=== PATIENT | female | born 1975 | race American Indian/Alaskan Native ===

== ENCOUNTER 2021-07-30 23:01 | Inpatient (IN) | payer SELFPAY ==
[2021-07-31] MEDS ORDERED: SODIUM CHLORIDE 0.9% 1000 ML 1,000 ML IV ONE (06:27)
--- NOTE | 2021-07-31 06:31 | Emergency Department Report ---
ED Female HPI - General Chief complaint: Vaginal Bleeding Stated complaint: HEAVY BLOOD FLOW Time Seen by Provider: 07/31/21 06:15 Source: patient, EMS Mode of arrival: Ambulatory Limitations: No Limitations - History of Present Illness Initial comments: 46-year-old female with a past medical history of anemia presents to the ER today with complaints of heavy vaginal bleeding. Patient states that she started bleeding yesterday. She states that the bleeding has been extremely heavy with passage of clots. She states that she has been changing 6 overnight pads per hour. She reports associated abdominal cramping shortness of breath especially exertion generalized weakness, dizziness and heart fluttering. She denies any syncopal or near syncopal episodes. She denies any fever or chills. She denies any UTI symptoms. She is not currently any control. Patient states that she had similar symptoms 2 years ago and was admitted and had to have a blood transfusion. She states that at the time she was diagnosed with small fibroids. 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 She states that her last normal menstrual cycle was June 2021 and it was regular. She states that she has been compliant with her iron supplements. Complaint: vaginal bleeding -: days(s) (1) - Related Data Allergies Allergy/AdvReac Type Severity Reaction Status Date / Time No Known Allergies Allergy Unverified 07/30/21 23:08 ED Review of Systems ROS: Stated complaint: HEAVY BLOOD FLOW Other details as noted in HPI Comment: All other systems reviewed and negative Constitutional: malaise, weakness. denies: chills, fever Eyes: denies: eye pain, eye discharge, vision change ENT: denies: ear pain, throat pain Respiratory: shortness of breath. denies: cough, SOB with exertion, SOB at rest, stridor, wheezing Cardiovascular: palpitations. denies: chest pain, dyspnea on exertion, edema, syncope, paroxysmal nocturnal dyspnea Gastrointestinal: abdominal pain. denies: nausea, vomiting, diarrhea, constipation, hematemesis, melena, hematochezia Genitourinary: abnormal menses. denies: urgency, dysuria, frequency, hematuria, discharge, dyspareunia Musculoskeletal: denies: back pain, joint swelling, arthralgia Skin: denies: rash, lesions, change in color, change in hair/nails, pruritus Neurological: weakness. denies: as per HPI, numbness, paresthesias, confusion, abnormal gait, vertigo Psychiatric: denies: anxiety, depression, auditory hallucinations, visual hallucinations, homicidal thoughts, suicidal thoughts Hematological/Lymphatic: denies: easy bleeding, easy bruising, swollen glands ED Past Medical Hx - Past Medical History Previous Medical History?: Yes Additional medical history: anemia - Surgical History Past Surgical History?: No ED Physical Exam - General Limitations: No Limitations General appearance: alert, lethargic - Head Head exam: Present: atraumatic, normocephalic, normal inspection - Eye Eye exam: Present: PERRL, EOMI, other (Pale conjunctiva) Pupils: Present: normal accommodation - ENT ENT exam: Present: mucous membranes moist, other (Oral mucosa is pale) - Neck Neck exam: Present: normal inspection, full ROM. Absent: meningismus - Respiratory Respiratory exam: Present: normal lung sounds bilaterally. Absent: respiratory distress, wheezes, rales, rhonchi, stridor - Cardiovascular Cardiovascular Exam: Present: regular rate, normal rhythm, normal heart sounds - GI/Abdominal GI/Abdominal exam: Present: soft. Absent: distended, tenderness, guarding, rebound - Extremities Exam Extremities exam: Present: normal inspection, full ROM - Neurological Exam Neurological exam: Present: alert, oriented X3, CN II-XII intact - Psychiatric Psychiatric exam: Present: normal affect, normal mood - Skin Skin exam: Present: pallor ED Course Vital Signs 07/30/21 07/31/21 07/31/21 23:07 06:48 06:50 Temperature 98 F 98.6 F Pulse Rate 67 106 H 106 H Respiratory 18 16 Rate Blood Pressure 146/62 139/83 [Right] O2 Sat by Pulse 95 100 99 Oximetry ED Medical Decision Making - Lab Data Result diagrams: 07/31/21 06:40 07/31/21 06:40 Laboratory Tests 07/31/21 07/31/21 07/31/21 06:40 06:40 06:40 RBC 1.79 L Hgb 2.9 L* Hct 11.0 L* MCV 61 L MCH 16 L MCHC 27 L RDW 37.3 H Plt Count 21 L Total Bilirubin < 0.20 Albumin/Globulin Ratio 1.6 HCG, Qual Negative - EKG Data EKG shows normal: sinus rhythm Rate: normal (95) No standard instances P Waves: LAE - EKG Data Interpretation: LVH - Radiology Data Radiology results: report reviewed Patient: MAVIS CANSECO MR#: [id number] : 1975 Acct:[id number] Age/Sex: 46 / F ADM Date: 07/30/21 Loc: ED Attending Dr: Ordering Physician: YOHANA POSADAS Date of Service: 07/31/21 Procedure(s): US pelvic complete Accession Number(s): [id number] cc: YOHANA POSADAS ULTRASOUND PELVIS INDICATION / CLINICAL INFORMATION: severe vaginal bleeding. TECHNIQUE: Transabdominal. Duplex Color Doppler used: Yes. COMPARISON: CT 10/30/2011 FINDINGS: UTERUS: The uterus is enlarged measuring 16.4 x 9.2 x 9.3 cm. The liver has a heterogeneous echotexture. The endometrial echo complex measures 6.7 mm. There are multiple hypoechoic uterine lesions, largest measuring 6.3 x 4.8 x 4.7 cm at the fundus. The masses are subserosal and intramural in location. RIGHT ADNEXA: Not identified. LEFT ADNEXA: Not identified. URINARY BLADDER: No significant abnormality. FREE FLUID: None. ADDITIONAL FINDINGS: None. IMPRESSION: 1. Enlarged uterus with multiple hypoechoic masses, which likely represent fibroids. Signer Name: Guido Little MD Signed: 07/31/2021 9:37 AM Workstation Name: [id number] Transcribed By: DB Dictated By: GUIDO LITTLE MD Electronically Authenticated By: GUIDO LITTLE MD Signed Date/Time: 07/31/21 0937 - Medical Decision Making Work up reviewed --patient severely anemic with a hemoglobin of 2.9 and viky tocrit of 11.0. She also has thrombocytopenia platelet count of 21. RBC and WBC was also noted to be at 1.79 and 13.5 respectively. Her EKG showed normal sinus rhythm with no STEMI or significant dysrhythmias. Pelvic ultrasound is pending. Given these results patient will be admitted to the hospital. She is currently resting on recliner. She is not currently in any acute distress while laying down unless when she stands up tomorrow she gets short of breath and feels like her heart is racing. Discussed results with patient and the fact that she will need to be admitted to the hospital. Patient expressed understanding and agree with plan. 0740: Discussed case with Dr Victor OBGYMaame conservation of resources commissioner, she recommend starting patient on conjugated estrogen every 6 hours and recommend admitting patient to the hospitalist and she will consult. 0801: Discussed case with Dr Preston, hospitalist for admission Critical care attestation.: If time is entered above; I have spent that time in minutes in the direct care of this critically ill patient, excluding procedure time. ED Disposition Clinical Impression: Symptomatic anemia, Thrombocytopenia, Menorrhagia, Ventricular tachycardia Disposition: ADMITTED INPATIENT Is pt being admited?: Yes Does the pt Need Aspirin: No Condition: Stable Referrals: PRIMARY CARE, [Primary Care Provider] - 3-5 Days
[2021-07-31 07:11] LABS: Mean Corpuscular HGB Conc 27 % (30-34); Red Blood Count 1.79 M/mm3 (3.65-5.03)
[2021-07-31 07:16] LABS: Hemoglobin 2.9 gm/dl (10.1-14.3); Mean Corpuscular Volume 61 fl (79-97); Platelet Count 21 K/mm3 (140-440); Red Cell Distribution Width 37.3 % (13.2-15.2)
[2021-07-31 07:31] LABS: Alanine Aminotransferase 6 units/L (7-56); Albumin 3.3 g/dL (3.9-5); Blood Urea Nitrogen 4 mg/dL (7-17); Calcium 8.3 mg/dL (8.4-10.2); Hemolysis Index 1
[2021-07-31 07:47] LABS: Eosinophils % (Manual) 0 % (0.0-4.3); Total Cells Counted 100
[2021-07-31 07:48] LABS: Anisocytosis 3+; Hypochromasia 3+; Poikilocytosis 1+
[2021-07-31 07:49] LABS: Tear Drop Cells Few
[2021-07-31 07:50] LABS: Ovalocytes Few; Platelet Estimate Consistent w Auto
[2021-07-31 07:51] LABS: BUN/Creatinine Ratio 8
[2021-07-31] MEDS ORDERED: SODIUM CHLORIDE 0.9% 500 ML 500 ML IV ONE ×2 (08:01→23:26)
[2021-07-31] MEDS: ESTROGENS, CONJUGATED 25 MG INJ IV SCH ×3 (08:25→22:49)
[2021-07-31] MEDS ORDERED: ACETAMINOPHEN 500 MG TAB PO ONE (08:37)
--- NOTE | 2021-07-31 09:39 | History and Physical Report ---
History of Present Illness History of present illness: HPI: 46 yo female with mphx of uterine fibroids, ANDERSON presenting to our facility with c/o of severe menorrhagia. Per patient, onset of symptoms was approximately 3 days ago. Patient has been saturating 6 overnight pads per hour since last night. She is currently on day 3 of 7 in her menstrual cycle. Her LMP was early last month and was normal per the pt. She endorses symptoms of abdomen cramping, SOB with exertion, generalized weakness, dizziness, and palpitations. On my encounter, she was resting comfortably only endorsing fatigue. Her tele monitor demonstrated sporadic bursts of VT, approx 15 - 20 sec. D/w ER attending regarding this. She denies DURBIN, N/V/D/C, chest pain, peripheral nerve pain. She denies dysmenorrhagia or dyspareunia associated with cycle. Remainder of ROS negative except for stated above Of note, patient states that she had a similar episode of vaginal bleeding apporximately 2 yrs ago at [facility] requiring admission and blood transfusion. She recovered uneventfully at the time and had been symptom free up until the last few days. Patient does admit to taking iron supplementation for anemia. 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 She denied taking OCP. She states that she had 3 prior pregnancies, 2 uncomplicated vaginal deliveries, one which ended in SAB. She denies any history of bleeding or clotting disorders. Patient will be admitted to IMCU for close monitoring of sympomatic anemia secondary to severe menorrhagia and intermittent runs of ventricular tachycardia. PMHx: uterine fibroids, ANDERSON, , SAB PSHx: denies FHx: reviewed non contributory SHx: Tobacco use- 1 pack per week ETOH Use- occasional Recreational Drug Use- denies Medications and Allergies Allergies Allergy/AdvReac Type Severity Reaction Status Date / Time No Known Allergies Allergy Unverified 07/30/21 23:08 Active Meds: Active Medications Estrogens Conjugated (Estrogens, Conjugated 25 Mg Inj) 25 mg IV Q6H MÓNICA Last Admin: 07/31/21 08:25 Dose: 25 mg Review of Systems All systems: negative (for stated in HPI) Exam - Physical Exam Narrative exam: Physical Exam: VITAL SIGNS: Reviewed. GENERAL: The patient appears normally developed, Vital signs as documented. ill appearing. HEAD: No signs of head trauma. EYES: Pupils are equal. Extraocular motions intact. Pale icterus EARS: Hearing grossly intact. MOUTH: Oropharynx is normal. NECK: No adenopathy, no JVD. CHEST: Chest with clear breath sounds bilaterally. No wheezes, rales, or rhonchi. CARDIAC: Regular rate and rhythm with intermittent bursts (15-20 sec) Vt. S1 and S2, without murmurs, gallops, or rubs. VASCULAR: No Edema. Peripheral pulses normal and equal in all extremities. ABDOMEN: Soft, non tender and non distended. No rebound or guarding, and no masses palpated. Bowel Sounds normal. MUSCULOSKELETAL: Good range of motion of all major joints. Extremities without clubbing, cyanosis or edema. NEUROLOGIC EXAM: Alert and oriented x 4. no focal sensory or strength deficits. PSYCHIATRIC: Mood normal. SKIN: Pale skin, nail beds pale. detail exam as documented in skin assessment - Constitutional Vitals: Temp Pulse Resp BP Pulse Ox 98.6 F 106 H 16 139/83 99 07/31/21 06:50 07/31/21 06:50 07/31/21 06:50 07/31/21 06:50 07/31/21 06:50 Results - Labs CBC & Chem 7: 07/31/21 06:40 07/31/21 06:40 Labs: Laboratory Last Values WBC 13.4 K/mm3 (4.5-11.0) H 07/31/21 06:40 RBC 1.79 M/mm3 (3.65-5.03) L 07/31/21 06:40 Hgb 2.9 gm/dl (10.1-14.3) L* 07/31/21 06:40 Hct 11.0 % (30.3-42.9) L* 07/31/21 06:40 MCV 61 fl (79-97) L 07/31/21 06:40 MCH 16 pg (28-32) L 07/31/21 06:40 MCHC 27 % (30-34) L 07/31/21 06:40 RDW 37.3 % (13.2-15.2) H 07/31/21 06:40 Plt Count 21 K/mm3 (140-440) L 07/31/21 06:40 Add Manual Diff Complete 07/31/21 06:40 Total Counted 100 07/31/21 06:40 Seg Neuts % (Manual) 88.0 % (40.0-70.0) H 07/31/21 06:40 Band Neutrophils % 0 % 07/31/21 06:40 Lymphocytes % (Manual) 8.0 % (13.4-35.0) L 07/31/21 06:40 Reactive Lymphs % (Man) 0 % 07/31/21 06:40 Monocytes % (Manual) 3.0 % (0.0-7.3) 07/31/21 06:40 Eosinophils % (Manual) 0 % (0.0-4.3) 07/31/21 06:40 Basophils % (Manual) 1.0 % (0.0-1.8) 07/31/21 06:40 Metamyelocytes % 0 % 07/31/21 06:40 Myelocytes % 0 % 07/31/21 06:40 Promyelocytes % 0 % 07/31/21 06:40 Blast Cells % 0 % 07/31/21 06:40 Nucleated RBC % Not Reportable 07/31/21 06:40 Seg Neutrophils # Man 11.8 K/mm3 (1.8-7.7) H 07/31/21 06:40 Band Neutrophils # 0.0 K/mm3 07/31/21 06:40 Lymphocytes # (Manual) 1.1 K/mm3 (1.2-5.4) L 07/31/21 06:40 Abs React Lymphs (Man) 0.0 K/mm3 07/31/21 06:40 Monocytes # (Manual) 0.4 K/mm3 (0.0-0.8) 07/31/21 06:40 Eosinophils # (Manual) 0.0 K/mm3 (0.0-0.4) 07/31/21 06:40 Basophils # (Manual) 0.1 K/mm3 (0.0-0.1) 07/31/21 06:40 Metamyelocytes # 0.0 K/mm3 07/31/21 06:40 Myelocytes # 0.0 K/mm3 07/31/21 06:40 Promyelocytes # 0.0 K/mm3 07/31/21 06:40 Blast Cells # 0.0 K/mm3 07/31/21 06:40 WBC Morphology Not Reportable 07/31/21 06:40 Hypersegmented Neuts Not Reportable 07/31/21 06:40 Hyposegmented Neuts Not Reportable 07/31/21 06:40 Hypogranular Neuts Not Reportable 07/31/21 06:40 Smudge Cells Not Reportable 07/31/21 06:40 Toxic Granulation Not Reportable 07/31/21 06:40 Toxic Vacuolation Not Reportable 07/31/21 06:40 Dohle Bodies Not Reportable 07/31/21 06:40 Pelger-Huet Anomaly Not Reportable 07/31/21 06:40 Mathieu Rods Not Reportable 07/31/21 06:40 Platelet Estimate Consistent w auto 07/31/21 06:40 Clumped Platelets Not Reportable 07/31/21 06:40 Plt Clumps, EDTA Not Reportable 07/31/21 06:40 Large Platelets Not Reportable 07/31/21 06:40 Giant Platelets Not Reportable 07/31/21 06:40 Platelet Satelliting Not Reportable 07/31/21 06:40 Plt Morphology Comment Not Reportable 07/31/21 06:40 RBC Morphology Not Reportable 07/31/21 06:40 Dimorphic RBCs Not Reportable 07/31/21 06:40 Polychromasia Few 07/31/21 06:40 Hypochromasia 3+ 07/31/21 06:40 Poikilocytosis 1+ 07/31/21 06:40 Anisocytosis 3+ 07/31/21 06:40 Microcytosis 2+ 07/31/21 06:40 Macrocytosis Not Reportable 07/31/21 06:40 Spherocytes Not Reportable 07/31/21 06:40 Pappenheimer Bodies Not Reportable 07/31/21 06:40 Sickle Cells Not Reportable 07/31/21 06:40 Target Cells Not Reportable 07/31/21 06:40 Tear Drop Cells Few 07/31/21 06:40 Ovalocytes Few 07/31/21 06:40 Helmet Cells Not Reportable 07/31/21 06:40 [place] Bodies Not Reportable 07/31/21 06:40 [place] Rings Not Reportable 07/31/21 06:40 Bishnu Cells Not Reportable 07/31/21 06:40 Bite Cells Not Reportable 07/31/21 06:40 Crenated Cell Not Reportable 07/31/21 06:40 Elliptocytes Few 07/31/21 06:40 Acanthocytes (Spur) Not Reportable 07/31/21 06:40 Rouleaux Not Reportable 07/31/21 06:40 Hemoglobin C Crystals Not Reportable 07/31/21 06:40 Schistocytes Not Reportable 07/31/21 06:40 Malaria parasites Not Reportable 07/31/21 06:40 Hector Bodies Not Reportable 07/31/21 06:40 Hem Pathologist Commnt No 07/31/21 06:40 Sodium 139 mmol/L (137-145) 07/31/21 06:40 Potassium 3.6 mmol/L (3.6-5.0) 07/31/21 06:40 Chloride 106.6 mmol/L (98-107) 07/31/21 06:40 Carbon Dioxide 20 mmol/L (22-30) L 07/31/21 06:40 Anion Gap 16 mmol/L 07/31/21 06:40 BUN 4 mg/dL (7-17) L 07/31/21 06:40 Creatinine 0.5 mg/dL (0.6-1.2) L 07/31/21 06:40 Estimated GFR > 60 ml/min 07/31/21 06:40 BUN/Creatinine Ratio 8 % 07/31/21 06:40 Glucose 140 mg/dL (65-100) H 07/31/21 06:40 Calcium 8.3 mg/dL (8.4-10.2) L 07/31/21 06:40 Total Bilirubin < 0.20 mg/dL (0.1-1.2) 07/31/21 06:40 AST 12 units/L (5-40) 07/31/21 06:40 ALT 6 units/L (7-56) L 07/31/21 06:40 Alkaline Phosphatase 48 units/L (35-129) 07/31/21 06:40 Total Protein 5.4 g/dL (6.3-8.2) L 07/31/21 06:40 Albumin 3.3 g/dL (3.9-5) L 07/31/21 06:40 Albumin/Globulin Ratio 1.6 % 07/31/21 06:40 HCG, Qual Negative (Negative) 07/31/21 06:40 Blood Type B POSITIVE 03/23/22 06:44 Antibody Screen Negative 07/31/21 06:44 Crossmatch See Detail 07/31/21 06:44 Assessment and Plan Assessment and plan: # Ventricular Tachycardia - intermittent bursts on tele - suspect this is due to severe anemia - continuous tele monitoring - ECHO ordered - initiated on metoprolol 12.5 mg po bid - cardiology consultation, recommends amiodorone bolus + drip # Menorrhagia - day 3 of 7 in menstrual cycle, prior cycle normal second episode, prior admission at [facility] x 2 yrs - VSS, hgb 2.9 - hcg qual negative - Pelvic US: enlarged uterus with hyperchoic lesions, fibroids visualized (please refer to radiology report) - 3 units prbc ordered, f/u cbc ordered - Estrogen 25 mg IV q6hr - Can consider TXA if bleeding is refractory to therapy. - ELECTRICAL SYSTEMS DESIGN ENGINEER consultation - hematology consultation placed, repeat bleeding+prior SAB could represent underlying hematologic condition. # Symptomatic Anemia - 2/2 heavy vaginal bleeding during mentrual cycle, has history of anemia and takes iron supplements. - hgb : 2.9 - s/p 3 units prbc, f/u cbc ordered - monitor H/H, transfuse prn Hgb < 7 - resume home iron supplementation - hematology consultation # Nicotine Abuse. - Cigarettes 1 pack per week - behavioral health counseling administered which included education on benefits of smoking cessation as well as options for quitting. +15 min. #Advance care planning Disease education conducted, care plan discussed, diagnoses discussed, prognosis discussed, patient is full code, patient acknowledges understanding and agree with care plan, +30 minutes. Level of Care: IMCU The high probability of a clinically significant, sudden or life threatening deterioration of the [cardiac] system(s) required my full and direct attention, intervention and personal management. The aggregate critical care time was [90] minutes. This time is in addition to time spent performing reported procedures but includes the following: [x] Data Review and interpretation [x] Patient assessment and monitoring of vital signs [x] Documentation [x] Medication orders and management
--- NOTE | 2021-07-31 09:41 | Ultrasound Report ---
ULTRASOUND PELVIS INDICATION / CLINICAL INFORMATION: severe vaginal bleeding. TECHNIQUE: Transabdominal. Duplex Color Doppler used: Yes. COMPARISON: CT 10/30/2011 FINDINGS: UTERUS: The uterus is enlarged measuring 16.4 x 9.2 x 9.3 cm. The liver has a heterogeneous echotextu re. The endometrial echo complex measures 6.7 mm. There are multiple hypoechoic uterine lesions, larg est measuring 6.3 x 4.8 x 4.7 cm at the fundus. The masses are subserosal and intramural in location. RIGHT ADNEXA: Not identified. LEFT ADNEXA: Not identified. URINARY BLADDER: No significant abnormality. FREE FLUID: None. ADDITIONAL FINDINGS: None. IMPRESSION: 1. Enlarged uterus with multiple hypoechoic masses, which likely represent fibroids. Signer Name: Guido Little MD Signed: 07/31/2021 9:37 AM Workstation Name: [email or web address]
--- NOTE | 2021-07-31 09:49 | Event Note ---
Patient has had several runs of ventricular tachycardia. I added troponin magnesium phosphorus to labs. I have informed admitting hospitalist
[2021-07-31] MEDS ORDERED: ONDANSETRON 4 MG/2 ML INJ IV PRN (10:00)
[2021-07-31] MEDS ORDERED: oxyCODONE /ACETAMINOPHEN 5-325MG TAB PO PRN (10:00)
--- NOTE | 2021-07-31 10:36 | Consultation ---
History of Present Illness Consult date: 07/31/21 Reason for consult: menorrhagia, other (severe anemia uterine fibroids) History of present illness: 46-year-old -0-1-2 with a history of uterine fibroids and symptomatic anemia presented to the emergency room with heavy vaginal bleeding x3 days. At bedside patient indicates that she has a normal cyclic menses lasting 7 days with light to medium flow. She has a history twice now of having heavy hemorrhaging with her menses but this is not her normal state. She has never been on hormones for cycle control. She indicates that she has " small fibroids." At bedside she is in the emergency room room 21 with her sister present. Her hemoglobin on admission is 2.9, she is awake alert and oriented. She continues to have premature ventricular tachycardia, is on telemetry and has had a full cardiology work-up. She indicates she has occasional cramping but denies cyclic dysmenorrhea or dyspareunia. He denies ever having surgery for this condition. She does not see a ROOMING HOUSE OPERATOR regularly. She has no history of cervical dysplasia. Denies having history of STI. Allergies none Medications none Past medical history patient denies Past surgical history patient denies Past ROOMING HOUSE OPERATOR history see above Past OB history: x2, SAB x1 Social: Patient smokes 1 pack of cigarettes per day denies use of drugs or alcohol Past History Past Medical History: other (Anemia) Past Surgical History: no surgical history ROOMING HOUSE OPERATOR History: fibroids Medications and Allergies Allergies Allergy/AdvReac Type Severity Reaction Status Date / Time No Known Allergies Allergy Unverified 07/30/21 23:08 Active Meds: Active Medications Acetaminophen (Acetaminophen 325 Mg Tab) 650 mg PO Q4H PRN PRN Reason: Pain MILD(1-3)/Fever >100.5/DURBIN Estrogens Conjugated (Estrogens, Conjugated 25 Mg Inj) 25 mg IV Q6H [facility] Last Admin: 07/31/21 08:25 Dose: 25 mg Ondansetron HCl (Ondansetron 4 Mg/2 Ml Inj) 4 mg IV Q8H PRN PRN Reason: Nausea And Vomiting Oxycodone/Acetaminophen (Oxycodone /Acetaminophen 5-325mg Tab) 1 tab PO Q6H PRN PRN Reason: Pain, Moderate (4-6) Sodium Chloride (Sodium Chloride 0.9% 10 Ml Flush Syringe) 10 ml IV BID MÓNCIA Sodium Chloride (Sodium Chloride 0.9% 10 Ml Flush Syringe) 10 ml IV PRN PRN PRN Reason: LINE FLUSH Review of Systems All systems: negative (heavy cyclic vaginal bleeding) Constitutional: fatigue - Vital Signs Vital signs: Vital Signs Temp Pulse Resp BP Pulse Ox 98 F 67 18 146/62 95 07/30/21 23:07 07/30/21 23:07 07/30/21 23:07 07/30/21 23:07 07/30/21 23:07 Temp Pulse Resp BP Pulse Ox 97.5 F L 98 H 23 146/66 98 07/31/21 10:01 07/31/21 10:20 07/31/21 10:20 07/31/21 10:20 07/31/21 10:20 - Physical Exam Breasts: Positive: normal Cardiovascular: Regular rate Lungs: Positive: Clear to auscultation, Normal air movement Abdomen: Positive: normal appearance, soft, normal bowel sounds Genitourinary (Female): Positive: normal external genitalia, normal perenium, other (Minimal bleeding on the peripad at bedside) Vulva: both: normal Vagina: Positive: normal moisture Uterus: Positive: enlarged Anus/Rectum: Positive: normal perianal skin Deep Tendon Reflex Grade: Normal +2 Results Result Diagrams: 07/31/21 06:40 07/31/21 06:40 Abnormal lab results 07/31/21 07/31/21 07/31/21 Range/Units 06:40 06:40 06:44 WBC 13.4 H (4.5-11.0) K/mm3 RBC 1.79 L (3.65-5.03) M/mm3 Hgb 2.9 L* (10.1-14.3) gm/dl Hct 11.0 L* (30.3-42.9) % MCV 61 L (79-97) fl MCH 16 L (28-32) pg MCHC 27 L (30-34) % RDW 37.3 H (13.2-15.2) % Plt Count 21 L (140-440) K/mm3 Seg Neuts % (Manual) 88.0 H (40.0-70.0) % Lymphocytes % (Manual) 8.0 L (13.4-35.0) % Seg Neutrophils # Man 11.8 H (1.8-7.7) K/mm3 Lymphocytes # (Manual) 1.1 L (1.2-5.4) K/mm3 Carbon Dioxide 20 L (22-30) mmol/L BUN 4 L (7-17) mg/dL Creatinine 0.5 L (0.6-1.2) mg/dL Glucose 140 H (65-100) mg/dL Calcium 8.3 L (8.4-10.2) mg/dL ALT 6 L (7-56) units/L Total Protein 5.4 L (6.3-8.2) g/dL Albumin 3.3 L (3.9-5) g/dL Crossmatch See Detail All other labs normal. Ultrasound: report reviewed, image reviewed Assessment and Plan admission to Hospitalist service: Patient requires telemetry and acute care nursing. transfusion IV fluids Estrogen IV 25mg Q6 hours for 24 hours Coags consider TXA if refractory to estrogen(10mg/Kg IV to a max dose of 600mg IV TID for five days) Heme consult After patient stabilizes from a hemodynamic standpoint, medical and surgical options can be reviewed and discussed. Radha Victor MD
[2021-07-31] MEDS ORDERED: SODIUM CHLORIDE 0.9% 1000 ML 1,000 ML ONE ×2 (10:57→11:58)
[2021-07-31] MEDS: METOPROLOL TARTRATE 25 MG TAB PO SCH ×2 (15:19→23:07)
[2021-07-31] MEDS ORDERED: AMIODARONE 150 MG in DEXTROSE 5% IN WATER 97 ML IV ONE ×2 (15:44→17:00)
[2021-07-31] MEDS ORDERED: AMIODARONE 150 MG/3 ML INJ IV ONE (15:52)
[2021-07-31] MEDS ORDERED: MAGNESIUM SULFATE 2 GM/50 ML BAG IV ONE (15:55)
--- NOTE | 2021-07-31 16:35 | Consultation ---
History of Present Illness Consult date: 07/31/21 Requesting physician: JAUN ESPINOZA Consult reason: arrhythmia, other (Ventricular tachycardia) History of present illness: Chief complaint: " Passing large vaginal blood clots, palpitations." Reason for consult: Ventricular tachycardia This is a pleasant 46-year-old -[place] female, unknown to our practice, with past medical history of anemia and heavy menstrual cycles who presents today after passing several large vaginal blood clots at home while on menstrual cycle. The patient states that this is day 3 of her typical 7-day cycle. She began to feel some palpitations last night and then noticed the large clots today, which prompted her to visit the emergency room. She states that she r equired transfusion in 2018 at [facility] for a similar problem. At the time of exam, patient was experiencing intermittent palpitations due to the numerous runs of VT on the bedside monitor. She also reports associated shortness of breath. Patient denies chest pain, dizziness, syncope, [place] sea/vomiting, or diarrhea. No family history of sudden or early cardiac . Patient is a 1 pack/week smoker; no significant alcohol use. No illicit drug use. Cardiology is consulted for ventricular tachycardia. Of note: CBC reveals significant anemia with hemoglobin of 2.9. Hematocrit of 1 1. Platelet count of 21. Patient has received 3 units PRBC in ED thus far. Past History Past Medical History: anemia Past Surgical History: No surgical history Social history: smoking. denies: alcohol abuse, IV drug use Family history: cancer (breast CA), hypertension, stroke Medications and Allergies Allergies Allergy/AdvReac Type Severity Reaction Status Date / Time No Known Allergies Allergy Unverified 07/30/21 23:08 Active Meds: Active Medications Acetaminophen (Acetaminophen 325 Mg Tab) 650 mg PO Q4H PRN PRN Reason: Pain MILD(1-3)/Fever >100.5/DURBIN Estrogens Conjugated (Estrogens, Conjugated 25 Mg Inj) 25 mg IV Q6H MÓNICA Stop: 08/01/21 07:59 Last Admin: 07/31/21 08:25 Dose: 25 mg Amiodarone HCl 900 mg/ (Dextrose) 500 mls @ 33.333 mls/hr IV DIRECT MÓNICA; Protocol Magnesium Sulfate (Magnesium Sulfate 2gm/50ml) 2 gm in 50 mls @ 25 mls/hr IV ONCE ONE Stop: 07/31/21 17:54 Amiodarone HCl 150 mg/ (Dextrose) 100 mls @ 600 mls/hr IV ONCE ONE Stop: 07/31/21 17:09 Metoprolol Tartrate (Metoprolol Tartrate 25 Mg Tab) 12.5 mg PO BID [facility] Last Admin: 07/31/21 15:19 Dose: 12.5 mg Ondansetron HCl (Ondansetron 4 Mg/2 Ml Inj) 4 mg IV Q8H PRN PRN Reason: Nausea And Vomiting Sodium Chloride (Sodium Chloride 0.9% 10 Ml Flush Syringe) 10 ml IV BID [facility] Last Admin: 07/31/21 12:36 Dose: 10 ml Sodium Chloride (Sodium Chloride 0.9% 10 Ml Flush Syringe) 10 ml IV PRN PRN PRN Reason: LINE FLUSH Review of Systems All systems: negative Cardiovascular: palpitations, shortness of breath, high blood pressure, no chest pain, no edema, no syncope Respiratory: no cough Gastrointestinal: no nausea, no vomiting, no diarrhea Genitourinary Female: menorrhagia, abnormal vaginal bleeding Menstruation: currently menstrual Physical Examination Vital Signs Temp Pulse Resp BP Pulse Ox 98 F 67 18 146/62 95 07/30/21 23:07 07/30/21 23:07 07/30/21 23:07 07/30/21 23:07 07/30/21 23:07 Vital Signs Temp 98.4 F 07/31/21 11:17 Pulse 87 07/31/21 15:19 Resp 18 07/31/21 13:25 BP 147/85 07/31/21 15:19 Pulse Ox 99 07/31/21 13:20 Intake & Output 07/30/21 07/31/21 07/31/21 23:59 11:59 23:59 Intake Total 0 750 Balance 0 750 Weight 81.647 kg Intake: Blood Product 0 750 Leukoreduced Red Blood 0 250 Cells Unit [id number] Leukoreduced Red Blood 250 Cells Unit [id number] Leukoreduced Red Blood 0 250 Cells Unit [id number] General appearance: no acute distress, well-nourished HEENT: Positive: Normocephaly, Mucus Membranes Moist Neck: Positive: neck supple, trachea midline Cardiac: Positive: Reg Rate and Rhythm, S1/S2, Other (Patient was having frequent runs of VT on monitor during exam. When not in VT, was in NSR with normal S1, S2) Lungs: Positive: Normal Exam Neuro: Positive: Grossly Intact Abdomen: Positive: Soft, Active Bowel Sounds Female genitourinary: deferred Skin: Negative: Rash Extremities: Present: warm. Absent: edema Results 07/31/21 06:40 07/31/21 06:40 Cardiac Enzymes 07/31/21 Range/Units 06:40 AST 12 (5-40) units/L CBC 07/31/21 Range/Units 06:40 WBC 13.4 H (4.5-11.0) K/mm3 RBC 1.79 L (3.65-5.03) M/mm3 Hgb 2.9 L* (10.1-14.3) gm/dl Hct 11.0 L* (30.3-42.9) % Plt Count 21 L (140-440) K/mm3 Comprehensive Metabolic Panel 07/31/21 Range/Units 06:40 Sodium 139 (137-145) mmol/L Potassium 3.6 (3.6-5.0) mmol/L Chloride 106.6 (98-107) mmol/L Carbon Dioxide 20 L (22-30) mmol/L BUN 4 L (7-17) mg/dL Creatinine 0.5 L (0.6-1.2) mg/dL Glucose 140 H (65-100) mg/dL Calcium 8.3 L (8.4-10.2) mg/dL AST 12 (5-40) units/L ALT 6 L (7-56) units/L Alkaline Phosphatase 48 (35-129) units/L Total Protein 5.4 L (6.3-8.2) g/dL Albumin 3.3 L (3.9-5) g/dL - Imaging and Cardiology Echo: pending EKG: report reviewed EKG interpretations - Telemetry EKG Rhythm: Sinus Rhythm (Probable LVH) Assessment and Plan Assessment Severe symptomatic anemia Ventricular tachycardia Thrombocytopenia Palpitations Hypertension Menorrhagia (heavy cyclic vaginal bleeding)-CONSTRUCTION REP following Home meds: Per patient report: Folic acid, magnesium, iron supplements at home Cardiographics: Telemetry-sinus tach with frequent runs of VT EKG- sinus rhythm heart rate 95, probable LVH, no acute ischemic changes Echocardiogram-pending Recommendations/plan: Blood pressure is currently stable Obtain echocardiogram 300 mg IV push of amiodarone bolus x1 now over 10 minutes for runs of VT, then start amiodarone drip Give 2 g IV magnesium Recheck CBC x1 now (s/p transfusion) Repeat CBC, coags, and mag level in a.m. Recommend heme/onc consult Patient seen in conjunction with Dr. Kelley who agrees with the assessment and management of this patient. - Patient Problems (1) Palpitation Current Visit: Yes Status: Acute (2) Menorrhagia Current Visit: Yes Status: Acute (3) Symptomatic anemia Current Visit: Yes Status: Acute (4) Thrombocytopenia Current Visit: Yes Status: Acute (5) Ventricular tachycardia Current Visit: Yes Status: Acute
[2021-07-31] MEDS: AMIODARONE 900 MG in DEXTROSE 5% IN WATER 482 ML IV SCH (17:16)
[2021-07-31 23:09] LABS: INR 1.1 (0.87-1.13)
[2021-07-31 23:10] LABS: Partial Thromboplastin Time 23.9 Sec. (24.2-36.6)
[2021-07-31 23:15] LABS: Mean Corpuscular HGB Conc 30 % (30-34); Mean Corpuscular Volume 76 fl (79-97); Red Blood Count 2.37 M/mm3 (3.65-5.03)
[2021-07-31 23:21] LABS: Platelet Count 24 K/mm3 (140-440)
[2021-07-31 23:25] LABS: Hematocrit 18.1 % (30.3-42.9); Hemoglobin 5.4 gm/dl (10.1-14.3)
[2021-08-01 00:46] LABS: Anisocytosis 3+; Basophils % (Manual) 0 % (0.0-1.8); Eosinophils % (Manual) 0 % (0.0-4.3); Total Cells Counted 100
[2021-08-01 00:47] LABS: Hypochromasia 3+; Tear Drop Cells Few
[2021-08-01 00:49] LABS: Ovalocytes Few; Platelet Estimate Consistent w Auto
[2021-08-01] MEDS: ESTROGENS, CONJUGATED 25 MG INJ IV SCH (03:18)
[2021-08-01] MEDS ORDERED: WATER FOR INJ Sterile (PF) 10 ML ONE (03:22)
[2021-08-01 07:32] LABS: Hematocrit 22.8 % (30.3-42.9); Hemoglobin 7.3 gm/dl (10.1-14.3); Mean Corpuscular HGB Conc 32 % (30-34); Mean Corpuscular Volume 76 fl (79-97); Platelet Count 66 K/mm3 (140-440); Red Blood Count 2.98 M/mm3 (3.65-5.03); Red Cell Distribution Width 32.7 % (13.2-15.2)
[2021-08-01 08:08] LABS: Blood Urea Nitrogen 3 mg/dL (7-17); Calcium 8.3 mg/dL (8.4-10.2); Hemolysis Index 0
[2021-08-01 08:12] LABS: BUN/Creatinine Ratio 6
[2021-08-01 08:52] LABS: Anisocytosis 2+; Basophils % (Manual) 0 % (0.0-1.8); Total Cells Counted 100
[2021-08-01 08:53] LABS: Hypochromasia 2+; Ovalocytes Few; Platelet Estimate Consistent w Auto; Poikilocytosis 1+; Tear Drop Cells Few
[2021-08-01] MEDS: METOPROLOL TARTRATE 25 MG TAB PO SCH ×2 (11:00→22:16)
--- NOTE | 2021-08-01 11:22 | Electrocardiograph Report ---
[facility] Test Date: 2021-07-31 Test Time: 06:32:39 Pat Name: MAVIS CANSECO Department: Room: A265 Gender: F Automatic Chief: JESSICA : 1975 Requested By: YOHANA POSADAS Order Number: [id number] Reading MD: Raj Kelley Measurements Intervals [place] Rate: 95 P: 69 OK: 166 QRS: 32 QRSD: 86 T: 93 QT: 379 QTc: 478 Interpretive Statements Sinus rhythm Probable left atrial enlargement Probable LVH with secondary repol abnrm No previous ECG available for comparison Electronically Signed On 08-01-2021 11:22:25 EDT by Raj Kelley
--- NOTE | 2021-08-01 11:27 | Electrocardiograph Report ---
[facility] Test Date: 2021-08-01 Test Time: 07:34:34 Pat Name: MAVIS CANSECO Department: Room: A265 1 Gender: F Manager Ent: ROBERTH : 1975 Requested By: ARABELLA MENDIOLA Order Number: [id number] Reading MD: Raj Kelley Measurements Intervals [place] Rate: 66 P: 37 NE: 203 QRS: 10 QRSD: 97 T: 61 QT: 456 QTc: 477 Interpretive Statements Sinus rhythm Borderline prolonged NE interval Compared to ECG 07/31/2021 06:32:39 No significant changes Electronically Signed On 08-01-2021 11:27:12 EDT by Raj Kelley
--- NOTE | 2021-08-01 13:11 | Consultation ---
History of Present Illness Consult date: 08/01/21 History of present illness: Patient seen and examined on a.m. rounds in IM ICU Awake alert and oriented at bedside Bleeding is resolving Patient has occasional cramping I discussed the value of an abdominal hysterectomy at discharge and patient acknowledges understanding. Patient continues to have runs of V. tach: Cardiology to manage We will continue to transfuse to hemoglobin between 01/18. 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 LINING BANDER History: fibroids Medications and Allergies Allergies Allergy/AdvReac Type Severity Reaction Status Date / Time No Known Allergies Allergy Unverified 07/30/21 23:08 Active Meds: Active Medications Acetaminophen (Acetaminophen 325 Mg Tab) 650 mg PO Q4H PRN PRN Reason: Pain MILD(1-3)/Fever >100.5/DURBIN Amiodarone HCl 900 mg/ (Dextrose) 500 mls @ 33.333 mls/hr IV DIRECT MÓNICA; Protocol Last Titration: 07/31/21 23:07 Dose: 0.5 mg/min, 16.667 mls/hr Metoprolol Tartrate (Metoprolol Tartrate 25 Mg Tab) 12.5 mg PO BID MÓNICA Last Admin: 08/01/21 11:00 Dose: 12.5 mg Ondansetron HCl (Ondansetron 4 Mg/2 Ml Inj) 4 mg IV Q8H PRN PRN Reason: Nausea And Vomiting Sodium Chloride (Sodium Chloride 0.9% 10 Ml Flush Syringe) 10 ml IV BID MÓNICA Last Admin: 07/31/21 23:08 Dose: 10 ml Sodium Chloride (Sodium Chloride 0.9% 10 Ml Flush Syringe) 10 ml IV PRN PRN PRN Reason: LINE FLUSH - Vital Signs Vital signs: Vital Signs Temp Pulse Resp BP Pulse Ox 98 F 67 18 146/62 95 07/30/21 23:07 07/30/21 23:07 07/30/21 23:07 07/30/21 23:07 07/30/21 23:07 Temp Pulse Resp BP Pulse Ox 98.9 F 68 19 139/97 96 08/01/21 12:01 08/01/21 11:00 08/01/21 07:01 08/01/21 11:00 08/01/21 07:01 - Physical Exam Breasts: Positive: deferred Cardiovascular: Other Lungs: Positive: Clear to auscultation, Normal air movement Abdomen: Positive: normal appearance, soft, normal bowel sounds Vagina: Positive: other (Perineum with minimal vaginal bleeding) Deep Tendon Reflex Grade: Normal +2 Results Result Diagrams: 08/01/21 06:31 08/01/21 06:31 Abnormal lab results 07/31/21 07/31/21 07/31/21 Range/Units 06:44 22:42 22:42 WBC 15.4 H (4.5-11.0) K/mm3 RBC 2.37 L (3.65-5.03) M/mm3 Hgb 5.4 L* (10.1-14.3) gm/dl Hct 18.1 L* D (30.3-42.9) % MCV 76 L (79-97) fl MCH 23 L (28-32) pg RDW 38.0 H (13.2-15.2) % Plt Count 24 L (140-440) K/mm3 Seg Neuts % (Manual) 88.0 H (40.0-70.0) % Lymphocytes % (Manual) 9.0 L (13.4-35.0) % Nucleated RBC % 3.0 H (0.0-0.9) % Seg Neutrophils # Man 13.6 H (1.8-7.7) K/mm3 Monocytes # (Manual) (0.0-0.8) K/mm3 Eosinophils # (Manual) (0.0-0.4) K/mm3 PT 15.5 H (12.2-14.9) Sec. APTT 23.9 L (24.2-36.6) Sec. Fibrinogen 175 L (211-480) mg/dl Chloride (98-107) mmol/L Carbon Dioxide (22-30) mmol/L BUN (7-17) mg/dL Creatinine (0.6-1.2) mg/dL Calcium (8.4-10.2) mg/dL Crossmatch See Detail 08/01/21 08/01/21 Range/Units 06:31 06:31 WBC 16.1 H (4.5-11.0) K/mm3 RBC 2.98 L (3.65-5.03) M/mm3 Hgb 7.3 L (10.1-14.3) gm/dl Hct 22.8 L (30.3-42.9) % MCV 76 L (79-97) fl MCH 24 L (28-32) pg RDW 32.7 H (13.2-15.2) % Plt Count 66 L D (140-440) K/mm3 Seg Neuts % (Manual) 82.0 H (40.0-70.0) % Lymphocytes % (Manual) 8.0 L (13.4-35.0) % Nucleated RBC % 4.0 H (0.0-0.9) % Seg Neutrophils # Man 13.2 H (1.8-7.7) K/mm3 Monocytes # (Manual) 1.1 H (0.0-0.8) K/mm3 Eosinophils # (Manual) 0.5 H (0.0-0.4) K/mm3 PT (12.2-14.9) Sec. APTT (24.2-36.6) Sec. Fibrinogen (211-480) mg/dl Chloride 110.0 H (98-107) mmol/L Carbon Dioxide 20 L (22-30) mmol/L BUN 3 L (7-17) mg/dL Creatinine 0.5 L (0.6-1.2) mg/dL Calcium 8.3 L (8.4-10.2) mg/dL Crossmatch All other labs normal. Assessment and Plan 46-year-old with uterine fibroids and associated dysfunctional uterine bleeding with severe anemia V. tach Patient was given my card to follow-up within 1 week of discharge for surgical scheduling Continue to transfuse to hemoglobin to be 9 and 10 for optimal preoperative hemodynamic stability. We will transition to Provera 10 mg p.o. at bedtime: Order placed in computer and order put in chart for discharge. Continue cardiology management of cardiac issues BAND LINING BANDER to sign off at this point Radha Victor MD
--- NOTE | 2021-08-01 14:13 | Hem/Onc Consultation ---
History of Present Illness - Reason for Consult Consult date: 08/01/21 Menorrhagia, severe anemia - History of Present Illness Heme consult note televisit via [facility] CPT [id number] Dx Anemia This is a 46yo female who presented to ER with severe menorrhagia Past medical history of uterine fibroids and iron defic anemia, on oral iron supplements Saturating 6 overnight pads per hour x 3 days-- She is currently on day 3 of 7 in her menstrual cycle Her LMP was early last month and was normal per the pt Reports abdomen cramping, SOB with exertion, generalized weakness, dizziness, and palpitations. As per notes, noted bursts of VT Reports of similar episodes of vaginal bleeding approximately 2 yrs ago at [facility] requiring admission and blood transfusion. She does not follow with OBGYN care outpatient. She states that she had 3 prior pregnancies, 2 uncomplicated vaginal deliveries, one which ended in SAB She denies any history of bleeding or clotting disorders. 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 Severe anemia, related to heavy menstrual bleeding--> iron deficiency anemia Vigilant for possible APL, even though WBC dif WNL PLAN: Labs to include: D-Dimer, manual WBC differential, LDH, electrophoresis, fibrinogen, Kaitlyn Unable to test iron studies post RBC transfusion as results would be uninterpretable Start Ferrlecit 125mg daily today Transfuse 10 units of cryo if fibrinogen <150 Transfuse 1 unit RBC whenever hct <22 Outpatient hematology follow-up for ITP management with Promacta if possible 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 Laboratory Last Values WBC 16.1 K/mm3 (4.5-11.0) H 08/01/21 06:31 RBC 2.98 M/mm3 (3.65-5.03) L 08/01/21 06:31 Hgb 7.3 gm/dl (10.1-14.3) L 08/01/21 06:31 Hct 22.8 % (30.3-42.9) L 08/01/21 06:31 MCV 76 fl (79-97) L 08/01/21 06:31 MCH 24 pg (28-32) L 08/01/21 06:31 MCHC 32 % (30-34) 08/01/21 06:31 RDW 32.7 % (13.2-15.2) H 08/01/21 06:31 Plt Count 66 K/mm3 (140-440) L D 08/01/21 06:31 Add Manual Diff Complete 08/01/21 06:31 Total Counted 100 08/01/21 06:31 Seg Neuts % (Manual) 82.0 % (40.0-70.0) H 08/01/21 06:31 Band Neutrophils % 0 % 08/01/21 06:31 Lymphocytes % (Manual) 8.0 % (13.4-35.0) L 08/01/21 06:31 Reactive Lymphs % (Man) 0 % 08/01/21 06:31 Monocytes % (Manual) 7.0 % (0.0-7.3) 08/01/21 06:31 Eosinophils % (Manual) 3.0 % (0.0-4.3) 08/01/21 06:31 Basophils % (Manual) 0 % (0.0-1.8) 08/01/21 06:31 Metamyelocytes % 0 % 08/01/21 06:31 Myelocytes % 0 % 08/01/21 06:31 Promyelocytes % 0 % 08/01/21 06:31 Blast Cells % 0 % 08/01/21 06:31 Nucleated RBC % 4.0 % (0.0-0.9) H 08/01/21 06:31 Seg Neutrophils # Man 13.2 K/mm3 (1.8-7.7) H 08/01/21 06:31 Band Neutrophils # 0.0 K/mm3 08/01/21 06:31 Lymphocytes # (Manual) 1.3 K/mm3 (1.2-5.4) 08/01/21 06:31 Abs React Lymphs (Man) 0.0 K/mm3 08/01/21 06:31 Monocytes # (Manual) 1.1 K/mm3 (0.0-0.8) H 08/01/21 06:31 Eosinophils # (Manual) 0.5 K/mm3 (0.0-0.4) H 08/01/21 06:31 Basophils # (Manual) 0.0 K/mm3 (0.0-0.1) 08/01/21 06:31 Metamyelocytes # 0.0 K/mm3 08/01/21 06:31 Myelocytes # 0.0 K/mm3 08/01/21 06:31 Promyelocytes # 0.0 K/mm3 08/01/21 06:31 Blast Cells # 0.0 K/mm3 08/01/21 06:31 WBC Morphology Not Reportable 08/01/21 06:31 Hypersegmented Neuts Not Reportable 08/01/21 06:31 Hyposegmented Neuts Not Reportable 08/01/21 06:31 Hypogranular Neuts Not Reportable 08/01/21 06:31 Smudge Cells Not Reportable 08/01/21 06:31 Toxic Granulation Not Reportable 08/01/21 06:31 Toxic Vacuolation Not Reportable 08/01/21 06:31 Dohle Bodies Not Reportable 08/01/21 06:31 Pelger-Huet Anomaly Not Reportable 08/01/21 06:31 Mathieu Rods Not Reportable 08/01/21 06:31 Platelet Estimate Consistent w auto 08/01/21 06:31 Clumped Platelets Not Reportable 08/01/21 06:31 Plt Clumps, EDTA Not Reportable 08/01/21 06:31 Large Platelets Not Reportable 08/01/21 06:31 Giant Platelets Not Reportable 08/01/21 06:31 Platelet Satelliting Not Reportable 08/01/21 06:31 Plt Morphology Comment Not Reportable 08/01/21 06:31 RBC Morphology Not Reportable 08/01/21 06:31 Dimorphic RBCs Not Reportable 08/01/21 06:31 Polychromasia Few 08/01/21 06:31 Hypochromasia 2+ 08/01/21 06:31 Poikilocytosis 1+ 08/01/21 06:31 Anisocytosis 2+ 08/01/21 06:31 Microcytosis Not Reportable 08/01/21 06:31 Macrocytosis Not Reportable 08/01/21 06:31 Spherocytes Not Reportable 08/01/21 06:31 Pappenheimer Bodies Not Reportable 08/01/21 06:31 Sickle Cells Not Reportable 08/01/21 06:31 Target Cells Not Reportable 08/01/21 06:31 Tear Drop Cells Few 08/01/21 06:31 Ovalocytes Few 08/01/21 06:31 Helmet Cells Not Reportable 08/01/21 06:31 [place] Bodies Not Reportable 08/01/21 06:31 [place] Rings Not Reportable 08/01/21 06:31 [place] Cells Not Reportable 08/01/21 06:31 Bite Cells Not Reportable 08/01/21 06:31 Crenated Cell Not Reportable 08/01/21 06:31 Elliptocytes Few 08/01/21 06:31 Acanthocytes (Spur) Not Reportable 08/01/21 06:31 Rouleaux Not Reportable 08/01/21 06:31 Hemoglobin C Crystals Not Reportable 08/01/21 06:31 Schistocytes Not Reportable 08/01/21 06:31 Malaria parasites Not Reportable 08/01/21 06:31 Hector Bodies Not Reportable 08/01/21 06:31 Hem Pathologist Commnt No 08/01/21 06:31 PT 15.5 Sec. (12.2-14.9) H 07/31/21 22:42 INR 1.10 (0.87-1.13) 07/31/21 22:42 APTT 23.9 Sec. (24.2-36.6) L 07/31/21 22:42 Fibrinogen 175 mg/dl (211-480) L 07/31/21 22:42 Sodium 139 mmol/L (137-145) 08/01/21 06:31 Potassium 3.6 mmol/L (3.6-5.0) 08/01/21 06:31 Chloride 110.0 mmol/L (98-107) H 08/01/21 06:31 Carbon Dioxide 20 mmol/L (22-30) L 08/01/21 06:31 Anion Gap 13 mmol/L 08/01/21 06:31 BUN 3 mg/dL (7-17) L 08/01/21 06:31 Creatinine 0.5 mg/dL (0.6-1.2) L 08/01/21 06:31 Estimated GFR > 60 ml/min 08/01/21 06:31 BUN/Creatinine Ratio 6 % 08/01/21 06:31 Glucose 98 mg/dL (65-100) 08/01/21 06:31 Calcium 8.3 mg/dL (8.4-10.2) L 08/01/21 06:31 Phosphorus 3.40 mg/dL (2.5-4.5) 07/31/21 10:03 Magnesium 1.90 mg/dL (1.7-2.3) 08/01/21 06:31 Total Bilirubin < 0.20 mg/dL (0.1-1.2) 07/31/21 06:40 AST 12 units/L (5-40) 07/31/21 06:40 ALT 6 units/L (7-56) L 07/31/21 06:40 Alkaline Phosphatase 48 units/L (35-129) 07/31/21 06:40 Troponin T < 0.010 ng/mL (0.00-0.029) 07/31/21 10:03 Total Protein 5.4 g/dL (6.3-8.2) L 07/31/21 06:40 Albumin 3.3 g/dL (3.9-5) L 07/31/21 06:40 Albumin/Globulin Ratio 1.6 % 07/31/21 06:40 HCG, Qual Negative (Negative) 07/31/21 06:40 Blood Type B POSITIVE 07/31/21 06:44 Antibody Screen Negative 07/31/21 06:44 Crossmatch See Detail 07/31/21 06:44 Past History Past Medical History: anemia Past Surgical History: No surgical history Social history: smoking. denies: alcohol abuse, IV drug use Family history: cancer (breast CA), hypertension, stroke Medications and Allergies Allergies Allergy/AdvReac Type Severity Reaction Status Date / Time No Known Allergies Allergy Unverified 07/30/21 23:08 Active Meds: Active Medications Acetaminophen (Acetaminophen 325 Mg Tab) 650 mg PO Q4H PRN PRN Reason: Pain MILD(1-3)/Fever >100.5/DURBIN Amiodarone HCl 900 mg/ (Dextrose) 500 mls @ 33.333 mls/hr IV DIRECT MÓNICA; Protocol Last Titration: 07/31/21 23:07 Dose: 0.5 mg/min, 16.667 mls/hr Metoprolol Tartrate (Metoprolol Tartrate 25 Mg Tab) 12.5 mg PO BID [facility] Last Admin: 08/01/21 11:00 Dose: 12.5 mg Ondansetron HCl (Ondansetron 4 Mg/2 Ml Inj) 4 mg IV Q8H PRN PRN Reason: Nausea And Vomiting Sodium Chloride (Sodium Chloride 0.9% 10 Ml Flush Syringe) 10 ml IV BID [facility] Last Admin: 07/31/21 23:08 Dose: 10 ml Sodium Chloride (Sodium Chloride 0.9% 10 Ml Flush Syringe) 10 ml IV PRN PRN PRN Reason: LINE FLUSH Sucralfate (Sucralfate 1 Gm Tab) 1 gm PO ACHS [facility] Exam - Constitutional Vitals: Last Vital Signs Temp 98.9 F 08/01/21 12:01 Pulse 58 L 08/01/21 13:00 Resp 20 08/01/21 13:00 BP 183/87 08/01/21 13:00 Pulse Ox 97 08/01/21 13:00 Results - Labs lab Results: Laboratory Results - last 24 hr 07/31/21 07/31/21 07/31/21 06:44 22:42 22:42 WBC 15.4 H RBC 2.37 L Hgb 5.4 L* Hct 18.1 L* D MCV 76 L MCH 23 L MCHC 30 RDW 38.0 H Plt Count 24 L Add Manual Diff Complete Total Counted 100 Seg Neuts % (Manual) 88.0 H Band Neutrophils % 0 Lymphocytes % (Manual) 9.0 L Reactive Lymphs % (Man) 0 Monocytes % (Manual) 3.0 Eosinophils % (Manual) 0 Basophils % (Manual) 0 Metamyelocytes % 0 Myelocytes % 0 Promyelocytes % 0 Blast Cells % 0 Nucleated RBC % 3.0 H Seg Neutrophils # Man 13.6 H Band Neutrophils # 0.0 Lymphocytes # (Manual) 1.4 Abs React Lymphs (Man) 0.0 Monocytes # (Manual) 0.5 Eosinophils # (Manual) 0.0 Basophils # (Manual) 0.0 Metamyelocytes # 0.0 Myelocytes # 0.0 Promyelocytes # 0.0 Blast Cells # 0.0 WBC Morphology Not Reportable Hypersegmented Neuts Not Reportable Hyposegmented Neuts Not Reportable Hypogranular Neuts Not Reportable Smudge Cells Not Reportable Toxic Granulation Not Reportable Toxic Vacuolation Not Reportable Dohle Bodies Not Reportable Pelger-Huet Anomaly Not Reportable Mathieu Rods Not Reportable Platelet Estimate Consistent w auto Clumped Platelets Not Reportable Plt Clumps, EDTA Not Reportable Large Platelets Not Reportable Giant Platelets Not Reportable Platelet Satelliting Not Reportable Plt Morphology Comment Not Reportable RBC Morphology Not Reportable Dimorphic RBCs Not Reportable Polychromasia Few Hypochromasia 3+ Poikilocytosis Not Reportable Anisocytosis 3+ Microcytosis 2+ Macrocytosis Not Reportable Spherocytes Not Reportable Pappenheimer Bodies Not Reportable Sickle Cells Not Reportable Target Cells Not Reportable Tear Drop Cells Few Ovalocytes Few Helmet Cells Not Reportable [place] Bodies Not Reportable [place] Rings Not Reportable Bishnu Cells Not Reportable Bite Cells Not Reportable Crenated Cell Not Reportable Elliptocytes Not Reportable Acanthocytes (Spur) Not Reportable Rouleaux Not Reportable Hemoglobin C Crystals Not Reportable Schistocytes Not Reportable Malaria parasites Not Reportable Hector Bodies Not Reportable Hem Pathologist Commnt No PT 15.5 H INR 1.10 APTT 23.9 L Fibrinogen 175 L Sodium Potassium Chloride Carbon Dioxide Anion Gap BUN Creatinine Estimated GFR BUN/Creatinine Ratio Glucose Calcium Magnesium Blood Type B POSITIVE Antibody Screen Negative Crossmatch See Detail 08/01/21 08/01/21 06:31 06:31 WBC 16.1 H RBC 2.98 L Hgb 7.3 L Hct 22.8 L MCV 76 L MCH 24 L MCHC 32 RDW 32.7 H Plt Count 66 L D Add Manual Diff Complete Total Counted 100 Seg Neuts % (Manual) 82.0 H Band Neutrophils % 0 Lymphocytes % (Manual) 8.0 L Reactive Lymphs % (Man) 0 Monocytes % (Manual) 7.0 Eosinophils % (Manual) 3.0 Basophils % (Manual) 0 Metamyelocytes % 0 Myelocytes % 0 Promyelocytes % 0 Blast Cells % 0 Nucleated RBC % 4.0 H Seg Neutrophils # Man 13.2 H Band Neutrophils # 0.0 Lymphocytes # (Manual) 1.3 Abs React Lymphs (Man) 0.0 Monocytes # (Manual) 1.1 H Eosinophils # (Manual) 0.5 H Basophils # (Manual) 0.0 Metamyelocytes # 0.0 Myelocytes # 0.0 Promyelocytes # 0.0 Blast Cells # 0.0 WBC Morphology Not Reportable Hypersegmented Neuts Not Reportable Hyposegmented Neuts Not Reportable Hypogranular Neuts Not Reportable Smudge Cells Not Reportable Toxic Granulation Not Reportable Toxic Vacuolation Not Reportable Dohle Bodies Not Reportable Pelger-Huet Anomaly Not Reportable Mathieu Rods Not Reportable Platelet Estimate Consistent w auto Clumped Platelets Not Reportable Plt Clumps, EDTA Not Reportable Large Platelets Not Reportable Giant Platelets Not Reportable Platelet Satelliting Not Reportable Plt Morphology Comment Not Reportable RBC Morphology Not Reportable Dimorphic RBCs Not Reportable Polychromasia Few Hypochromasia 2+ Poikilocytosis 1+ Anisocytosis 2+ Microcytosis Not Reportable Macrocytosis Not Reportable Spherocytes Not Reportable Pappenheimer Bodies Not Reportable Sickle Cells Not Reportable Target Cells Not Reportable Tear Drop Cells Few Ovalocytes Few Helmet Cells Not Reportable [place] Bodies Not Reportable [place] Rings Not Reportable [place] Cells Not Reportable Bite Cells Not Reportable Crenated Cell Not Reportable Elliptocytes Few Acanthocytes (Spur) Not Reportable Rouleaux Not Reportable Hemoglobin C Crystals Not Reportable Schistocytes Not Reportable Malaria parasites Not Reportable Hector Bodies Not Reportable Hem Pathologist Commnt No PT INR APTT Fibrinogen Sodium 139 Potassium 3.6 Chloride 110.0 H Carbon Dioxide 20 L Anion Gap 13 BUN 3 L Creatinine 0.5 L Estimated GFR > 60 BUN/Creatinine Ratio 6 Glucose 98 Calcium 8.3 L Magnesium 1.90 Blood Type Antibody Screen Crossmatch
--- NOTE | 2021-08-01 14:42 | Progress Note ---
Assessment and Plan Assessment and plan: Assessment and Plan # Ventricular Tachycardia (resolved) - intermittent bursts on tele - suspect this is due to severe anemia - continuous tele monitoring - ECHO: ef 55-60%, mild dilation. please refer to official report -continue metoprolol 12.5 mg po bid - cardiology consultation, recommends amiodorone bolus + drip - no further episodes seen on 08/01 encounter in afternoon, suspect VT was driven by severe anemia, will follow final cardiology recs. # Menorrhagia (improving) - day 3 of 7 in menstrual cycle, prior cycle normal second episode, prior admission at [facility] x 2 yrs - VSS, hgb 2.9 - hcg qual negative -fibrinogen 175. - Pelvic US: enlarged uterus with hyperchoic lesions, fibroids visualized (please refer to radiology report) - 3 units prbc ordered, f/u cbc ordered - Estrogen 25 mg IV q6hr - Can consider TXA if bleeding is refractory to therapy. 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 - hematology consultation placed, repeat bleeding+prior SAB could represent underlying hematologic condition. # Symptomatic Anemia - 2/2 heavy vaginal bleeding during mentrual cycle, has history of anemia and takes iron supplements. - hgb : 2.9 - s/p 3 units prbc, f/u cbc ordered - monitor H/H, transfuse prn Hgb < 7 - resume home iron supplementation - ferlicit ordered by hematology - hematology consultation #Thrombocytopenia - plt: 21k--> 66K - transfuse prn < 20k - hematology consultation # Nicotine Abuse. - Cigarettes 1 pack per week - behavioral health counseling administered which included education on benefits of smoking cessation as well as options for quitting. +15 min. #Advance care planning Disease education conducted, care plan discussed, diagnoses discussed, prognosis discussed, patient is full code, patient acknowledges understanding and agree with care plan, +30 minutes. Level of Care: IMCU Dispo: Will await cardiology final recs. patient will likely get hysterectomy as OP. If no further runs of VT tomorrow, will plan for d/c in early AM. The high probability of a clinically significant, sudden or life threatening deterioration of the [cardiac,pool player,heme] system(s) required my full and direct attention, intervention and personal management. The aggregate critical care time was [60] minutes. This time is in addition to time spent performing reported procedures but includes the following: [x] Data Review and interpretation [x] Patient assessment and monitoring of vital signs [x] Documentation [x] Medication orders and management History Interval history: No acute complaints. No episodes of VT noted on bedside tele. Patient states that she does not have significant menorrhagia today and that her symptoms have resolved today. Hospitalist Physical - Physical exam Narrative exam: Physical Exam: VITAL SIGNS: Reviewed. GENERAL: The patient appears normally developed, Vital signs as documented. ill appearing. HEAD: No signs of head trauma. EYES: Pupils are equal. Extraocular motions intact. Pale icterus EARS: Hearing grossly intact. MOUTH: Oropharynx is normal. NECK: No adenopathy, no JVD. CHEST: Chest with clear breath sounds bilaterally. No wheezes, rales, or rhonchi. CARDIAC: Regular rate and rhythm. no VT episodes visuazlied on monitor. pulse rate 54 NSR. S1 and S2, without murmurs, gallops, or rubs. VASCULAR: No Edema. Peripheral pulses normal and equal in all extremities. ABDOMEN: Soft, non tender and non distended. No rebound or guarding, and no masses palpated. Bowel Sounds normal. MUSCULOSKELETAL: Good range of motion of all major joints. Extremities without clubbing, cyanosis or edema. NEUROLOGIC EXAM: Alert and oriented x 4. no focal sensory or strength deficits. PSYCHIATRIC: Mood normal. SKIN: Pale skin, nail beds pale. detail exam as documented in skin assessment - Constitutional Vitals: Temp Pulse Resp BP Pulse Ox 98.9 F 58 L 20 183/87 97 08/01/21 12:01 08/01/21 13:00 08/01/21 13:00 08/01/21 13:00 08/01/21 13:00 General appearance: Present: no acute distress, well-nourished HEART Score - HEART Score Troponin: Troponin T < 0.010 ng/mL (0.00-0.029) 07/31/21 10:03 Results - Labs CBC & Chem 7: 08/01/21 06:31 08/01/21 06:31 Labs: Laboratory Last Values WBC 16.1 K/mm3 (4.5-11.0) H 08/01/21 06:31 RBC 2.98 M/mm3 (3.65-5.03) L 08/01/21 06:31 Hgb 7.3 gm/dl (10.1-14.3) L 08/01/21 06:31 Hct 22.8 % (30.3-42.9) L 08/01/21 06:31 MCV 76 fl (79-97) L 08/01/21 06:31 MCH 24 pg (28-32) L 08/01/21 06:31 MCHC 32 % (30-34) 08/01/21 06:31 RDW 32.7 % (13.2-15.2) H 08/01/21 06:31 Plt Count 66 K/mm3 (140-440) L D 08/01/21 06:31 Add Manual Diff Complete 08/01/21 06:31 Total Counted 100 08/01/21 06:31 Seg Neuts % (Manual) 82.0 % (40.0-70.0) H 08/01/21 06:31 Band Neutrophils % 0 % 08/01/21 06:31 Lymphocytes % (Manual) 8.0 % (13.4-35.0) L 08/01/21 06:31 Reactive Lymphs % (Man) 0 % 08/01/21 06:31 Monocytes % (Manual) 7.0 % (0.0-7.3) 08/01/21 06:31 Eosinophils % (Manual) 3.0 % (0.0-4.3) 08/01/21 06:31 Basophils % (Manual) 0 % (0.0-1.8) 08/01/21 06:31 Metamyelocytes % 0 % 08/01/21 06:31 Myelocytes % 0 % 08/01/21 06:31 Promyelocytes % 0 % 08/01/21 06:31 Blast Cells % 0 % 08/01/21 06:31 Nucleated RBC % 4.0 % (0.0-0.9) H 08/01/21 06:31 Seg Neutrophils # Man 13.2 K/mm3 (1.8-7.7) H 08/01/21 06:31 Band Neutrophils # 0.0 K/mm3 08/01/21 06:31 Lymphocytes # (Manual) 1.3 K/mm3 (1.2-5.4) 08/01/21 06:31 Abs React Lymphs (Man) 0.0 K/mm3 08/01/21 06:31 Monocytes # (Manual) 1.1 K/mm3 (0.0-0.8) H 08/01/21 06:31 Eosinophils # (Manual) 0.5 K/mm3 (0.0-0.4) H 08/01/21 06:31 Basophils # (Manual) 0.0 K/mm3 (0.0-0.1) 08/01/21 06:31 Metamyelocytes # 0.0 K/mm3 08/01/21 06:31 Myelocytes # 0.0 K/mm3 08/01/21 06:31 Promyelocytes # 0.0 K/mm3 08/01/21 06:31 Blast Cells # 0.0 K/mm3 08/01/21 06:31 WBC Morphology Not Reportable 08/01/21 06:31 Hypersegmented Neuts Not Reportable 08/01/21 06:31 Hyposegmented Neuts Not Reportable 08/01/21 06:31 Hypogranular Neuts Not Reportable 08/01/21 06:31 Smudge Cells Not Reportable 08/01/21 06:31 Toxic Granulation Not Reportable 08/01/21 06:31 Toxic Vacuolation Not Reportable 08/01/21 06:31 Dohle Bodies Not Reportable 08/01/21 06:31 Pelger-Huet Anomaly Not Reportable 08/01/21 06:31 Mathieu Rods Not Reportable 08/01/21 06:31 Platelet Estimate Consistent w auto 08/01/21 06:31 Clumped Platelets Not Reportable 08/01/21 06:31 Plt Clumps, EDTA Not Reportable 08/01/21 06:31 Large Platelets Not Reportable 08/01/21 06:31 Giant Platelets Not Reportable 08/01/21 06:31 Platelet Satelliting Not Reportable 08/01/21 06:31 Plt Morphology Comment Not Reportable 08/01/21 06:31 RBC Morphology Not Reportable 08/01/21 06:31 Dimorphic RBCs Not Reportable 08/01/21 06:31 Polychromasia Few 08/01/21 06:31 Hypochromasia 2+ 08/01/21 06:31 Poikilocytosis 1+ 08/01/21 06:31 Anisocytosis 2+ 08/01/21 06:31 Microcytosis Not Reportable 08/01/21 06:31 Macrocytosis Not Reportable 08/01/21 06:31 Spherocytes Not Reportable 08/01/21 06:31 Pappenheimer Bodies Not Reportable 08/01/21 06:31 Sickle Cells Not Reportable 08/01/21 06:31 Target Cells Not Reportable 08/01/21 06:31 Tear Drop Cells Few 08/01/21 06:31 Ovalocytes Few 08/01/21 06:31 Helmet Cells Not Reportable 08/01/21 06:31 [place] Bodies Not Reportable 08/01/21 06:31 Man Rings Not Reportable 08/01/21 06:31 [place] Cells Not Reportable 08/01/21 06:31 Bite Cells Not Reportable 08/01/21 06:31 Crenated Cell Not Reportable 08/01/21 06:31 Elliptocytes Few 08/01/21 06:31 Acanthocytes (Spur) Not Reportable 08/01/21 06:31 Rouleaux Not Reportable 08/01/21 06:31 Hemoglobin C Crystals Not Reportable 08/01/21 06:31 Schistocytes Not Reportable 08/01/21 06:31 Malaria parasites Not Reportable 08/01/21 06:31 Hector Bodies Not Reportable 08/01/21 06:31 Hem Pathologist Commnt No 08/01/21 06:31 PT 15.5 Sec. (12.2-14.9) H 07/31/21 22:42 INR 1.10 (0.87-1.13) 07/31/21 22:42 APTT 23.9 Sec. (24.2-36.6) L 07/31/21 22:42 Fibrinogen 175 mg/dl (211-480) L 07/31/21 22:42 Sodium 139 mmol/L (137-145) 08/01/21 06:31 Potassium 3.6 mmol/L (3.6-5.0) 08/01/21 06:31 Chloride 110.0 mmol/L (98-107) H 08/01/21 06:31 Carbon Dioxide 20 mmol/L (22-30) L 08/01/21 06:31 Anion Gap 13 mmol/L 08/01/21 06:31 BUN 3 mg/dL (7-17) L 08/01/21 06:31 Creatinine 0.5 mg/dL (0.6-1.2) L 08/01/21 06:31 Estimated GFR > 60 ml/min 08/01/21 06:31 BUN/Creatinine Ratio 6 % 08/01/21 06:31 Glucose 98 mg/dL (65-100) 08/01/21 06:31 Calcium 8.3 mg/dL (8.4-10.2) L 08/01/21 06:31 Phosphorus 3.40 mg/dL (2.5-4.5) 07/31/21 10:03 Magnesium 1.90 mg/dL (1.7-2.3) 08/01/21 06:31 Total Bilirubin < 0.20 mg/dL (0.1-1.2) 07/31/21 06:40 AST 12 units/L (5-40) 07/31/21 06:40 ALT 6 units/L (7-56) L 07/31/21 06:40 Alkaline Phosphatase 48 units/L (35-129) 07/31/21 06:40 Troponin T < 0.010 ng/mL (0.00-0.029) 07/31/21 10:03 Total Protein 5.4 g/dL (6.3-8.2) L 07/31/21 06:40 Albumin 3.3 g/dL (3.9-5) L 07/31/21 06:40 Albumin/Globulin Ratio 1.6 % 07/31/21 06:40 HCG, Qual Negative (Negative) 07/31/21 06:40 Blood Type B POSITIVE 07/31/21 06:44 Antibody Screen Negative 07/31/21 06:44 Crossmatch See Detail 07/31/21 06:44 Active Medications - Current Medications Current Medications: Generic Name Dose Route Start Last Admin Trade Name Freq PRN Reason Stop Dose Admin Acetaminophen 650 mg 07/31/21 10:00 Acetaminophen 325 Mg Tab PO Q4H PRN Pain MILD(1-3)/Fever >100.5/DURBIN Amiodarone HCl 900 mg/ 500 mls @ 33.333 mls/hr 07/31/21 16:00 07/31/21 23:07 Dextrose IV 0.5 mg/min DIRECT MÓNICA 16.667 mls/hr Titration Protocol 1 MG/MIN Metoprolol Tartrate 12.5 mg 07/31/21 15:00 08/01/21 11:00 Metoprolol Tartrate 25 Mg Tab PO 12.5 mg BID MÓNICA Administration Ondansetron HCl 4 mg 07/31/21 10:00 Ondansetron 4 Mg/2 Ml Inj IV Q8H PRN Nausea And Vomiting Sodium Chloride 10 ml 07/31/21 10:00 07/31/21 23:08 Sodium Chloride 0.9% 10 Ml Flush Syringe IV 10 ml BID MÓNICA Administration Sodium Chloride 10 ml 07/31/21 10:00 Sodium Chloride 0.9% 10 Ml Flush Syringe IV PRN PRN LINE FLUSH Sucralfate 1 gm 08/01/21 16:30 Sucralfate 1 Gm Tab PO ACHS MÓNICA
[2021-08-01] MEDS: SUCRALFATE 1 GM TAB PO SCH (16:25)
--- NOTE | 2021-08-01 16:30 | Progress Note ---
Assessment and Plan This is a pleasant 46-year-old [place] female, unknown to our practice, with past medical history of anemia and heavy menstrual cycles who presented to ED after passing several large vaginal blood clots at home while on menstrual cycle. Severe symptomatic anemia Ventricular tachycardia Thrombocytopenia Palpitations Hypertension Menorrhagia (heavy cyclic vaginal bleeding)-[employer]CH[employer]YMAN following Home meds: Per patient report: Folic acid, magnesium, iron supplements at home Echo 07/31/2021-EF 55 to 60%. LV is mildly dilated. Mild concentric LVH. Mild diastolic dysfunction is present. No pericardial effusion Plan: Patient's H&H has improved however patient remains anemic. Continue to monitor recommend blood transfusion if patient is hemoglobin less than 7 Attempted to review telemetry however patient has not been correctly on monitor Unclear if patient has had any further episodes of V. tach. From what was observed patient appeared to have been in sinus rhythm rate of 60s Will continue amiodarone drip and review telemetry for any further episodes of V. tach Discussed with patient importance of remaining on monitor Patient seen in conjunction with Dr. Kelley who agrees with the assessment and management of this patient. - Patient Problems (1) Menorrhagia Current Visit: Yes Status: Acute (2) Palpitation Current Visit: Yes Status: Acute (3) Symptomatic anemia Current Visit: Yes Status: Acute (4) Thrombocytopenia Current Visit: Yes Status: Acute (5) Ventricular tachycardia Current Visit: Yes Status: Acute Subjective Date of service: 08/01/21 Principal diagnosis: Anemia/V. tach Interval history: Patient resting in bed in no acute distress Patient not on monitor Objective Vital Signs Temp Pulse Pulse Resp BP BP Pulse Ox 08/01/21 13:00 58 L 20 183/87 97 08/01/21 12:01 98.9 F 63 17 165/91 99 08/01/21 11:00 69 25 H 155/72 99 08/01/21 10:01 132/78 99 08/01/21 09:00 70 18 156/76 95 08/01/21 08:00 68 67 24 152/68 95 08/01/21 07:28 98.9 F 08/01/21 07:01 65 19 150/64 96 08/01/21 06:00 69 23 152/70 98 08/01/21 05:00 65 24 151/73 97 08/01/21 04:11 65 22 145/66 99 08/01/21 04:00 65 22 145/66 97 08/01/21 03:51 70 23 147/63 100 08/01/21 03:41 67 22 147/63 99 08/01/21 03:30 65 22 147/63 97 08/01/21 03:21 65 22 164/69 99 08/01/21 03:11 67 23 164/69 100 08/01/21 03:07 69 100 08/01/21 03:00 67 22 164/69 95 08/01/21 02:11 98.2 F 08/01/21 02:00 66 23 156/67 98 08/01/21 01:51 65 22 148/75 100 08/01/21 01:46 98.1 F 66 22 148/75 08/01/21 01:41 68 22 148/75 100 08/01/21 01:30 69 22 148/75 99 08/01/21 01:21 67 22 137/66 100 08/01/21 01:11 65 21 137/66 100 08/01/21 01:00 66 22 137/66 100 08/01/21 00:51 66 22 146/62 99 08/01/21 00:41 66 22 146/62 100 08/01/21 00:38 98 F 66 22 146/62 08/01/21 00:31 65 21 145/63 99 08/01/21 00:23 98.0 F 67 22 145/63 99 08/01/21 00:21 65 19 145/63 100 08/01/21 00:11 69 20 145/63 100 08/01/21 00:00 65 67 23 145/63 100 07/31/21 23:51 64 20 120/51 100 0322 23:41 64 21 120/51 100 0322 23:31 66 24 120/51 100 03/22 23:21 64 15 120/51 100 [id number] 23:13 66 15 120/51 100 22 23:11 64 19 120/51 100 22 23:01 65 14 120/51 100 0322 22:51 63 22 99 22 22:43 99 22 22:40 98.5 F 07/31/21 22:21 64 13 131/53 100 07/31/21 22:16 98 F 71 15 131/53 98 07/31/ 22:11 72 22 131/53 99 07/31/21 22:01 65 13 131/53 100 07/31/21 21:51 68 14 139/60 100 07/31/22 21:41 67 18 139/60 100 07/31/21 21:31 66 19 139/60 99 07/31/21 21:21 65 23 158/79 100 07/31/21 21:11 69 23 158/79 99 07/31/21 21:01 66 22 158/79 100 07/31/21 21:00 98 F 66 20 148/73 100 07/31/ 20:51 68 24 148/73 100 07/31/21 20:41 67 21 148/73 99 07/31/21 20:31 66 23 148/73 99 07/31/21 20:21 67 23 155/72 97 07/31/21 20:11 66 21 155/72 97 07/31/21 20:01 67 21 155/72 98 07/31/21 19:51 68 22 145/85 97 07/31/21 19:41 67 22 145/85 100 07/31/21 19:31 66 24 145/85 100 07/31/21 19:21 67 26 H 148/81 100 07/31/21 19:11 67 22 148/81 100 07/31/21 19:01 64 19 148/81 100 07/31/21 18:51 66 24 145/76 100 07/31/21 18:41 66 23 145/76 100 07/31/21 18:31 67 19 145/76 100 07/31/21 18:21 68 19 137/77 100 07/31/21 18:11 69 13 148/80 95 07/31/21 18:01 69 12 148/80 100 07/31/ 17:51 68 19 148/80 100 07/31/21 17:41 79 13 148/80 98 07/31/21 17:31 70 13 148/80 97 07/31/21 17:21 66 17 148/80 100 07/31/21 17:11 69 20 129/57 100 22 17:01 70 15 129/57 91 07/31/21 16:51 71 15 137/64 100 07/31/21 16:41 73 18 137/64 100 07/31/21 16:31 79 15 143/67 100 - Physical Examination General: No Apparent Distress HEENT: Positive: Normocephaly, Mucus Membranes Moist Neck: Positive: neck supple, trachea midline Cardiac: Positive: Reg Rate and Rhythm Neuro: Positive: Grossly Intact Abdomen: Positive: Soft, Active Bowel Sounds Skin: Negative: Rash Extremities: Present: warm. Absent: edema - Labs and Meds Coagulation 07/31/21 Range/Units 22:42 PT 15.5 H (12.2-14.9) Sec. INR 1.10 (0.87-1.13) APTT 23.9 L (24.2-36.6) Sec. CBC 07/31/21 08/01/21 Range/Units 22:42 06:31 WBC 15.4 H 16.1 H (4.5-11.0) K/mm3 RBC 2.37 L 2.98 L (3.65-5.03) M/mm3 Hgb 5.4 L* 7.3 L (10.1-14.3) gm/dl Hct 18.1 L* D 22.8 L (30.3-42.9) % Plt Count 24 L 66 L D (140-440) K/mm3 Comprehensive Metabolic Panel 08/01/21 Range/Units 06:31 Sodium 139 (137-145) mmol/L Potassium 3.6 (3.6-5.0) mmol/L Chloride 110.0 H (98-107) mmol/L Carbon Dioxide 20 L (22-30) mmol/L BUN 3 L (7-17) mg/dL Creatinine 0.5 L (0.6-1.2) mg/dL Glucose 98 (65-100) mg/dL Calcium 8.3 L (8.4-10.2) mg/dL - Imaging and Cardiology EKG: report reviewed Echo: report reviewed
[2021-08-01] MEDS ORDERED: SODIUM FERRIC GLUCON/SUCRO 125 MG in SODIUM CHLORIDE 0.9% 100 ML IV ONE (16:43)
[2021-08-01] MEDS: AMIODARONE 900 MG in DEXTROSE 5% IN WATER 482 ML IV SCH (18:31)
[2021-08-01] MEDS: ACETAMINOPHEN 325 MG TAB PO PRN (22:12)
[2021-08-02 04:45] LABS: Hemoglobin 7.5 gm/dl (10.1-14.3); Mean Corpuscular HGB Conc 31 % (30-34); Mean Corpuscular Volume 77 fl (79-97); Red Blood Count 3.11 M/mm3 (3.65-5.03)
[2021-08-02] MEDS: ACETAMINOPHEN 325 MG TAB PO PRN (04:48)
[2021-08-02 04:57] LABS: Platelet Count 49 K/mm3 (140-440); Red Cell Distribution Width 32.1 % (13.2-15.2)
[2021-08-02] MEDS: SUCRALFATE 1 GM TAB PO SCH ×5 (06:16→22:00)
[2021-08-02 06:28] LABS: Basophils % (Manual) 0 % (0.0-1.8); Monocytes % (Manual) 0 % (0.0-7.3); Total Cells Counted 100
[2021-08-02 06:29] LABS: Anisocytosis 3+; Hypochromasia 1+
[2021-08-02 06:30] LABS: Macrocytosis 1+; Ovalocytes Few; Platelet Estimate Consistent w Auto; Tear Drop Cells Few
[2021-08-02] MEDS: METOPROLOL TARTRATE 25 MG TAB PO SCH ×2 (07:21→11:31)
--- NOTE | 2021-08-02 09:31 | Hem/Onc Progress Note ---
Subjective Date of service: 08/02/21 Interval history: Heme progress note televisit via [facility] CPT 92092 Dx Anemia 46yo female who presented to ER with severe menorrhagia H/H on admission 2.9 MCV 61, WBC 16.1, plts 21 Hematology following for anemia and thrombocytopenia Denies bleeding today Feels better today DATA REVIEWED BELOW Hgb 2.9 --> 7.5 Plts 21 -> 66--> 49 Fib 309 IMP: Thrombocytopenia, due to ITP with heavy periods Severe anemia, related to heavy menstrual bleeding--> iron deficiency anemia APL possible although doubt Plan: Start Solumedrol 1mg/kg IV BID Pending Kaitlyn Ferrlecit 125mg daily today Transfuse 1 unit RBC whenever hct <22 Recommend Lysteda 650mg every 6 hours for a max of 5 days when menstrual bleeding at discharge Outpatient hematology follow-up for ITP management with Promacta if possible 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 follow-up outpatient for hysterectomy Laboratory Last Values WBC 15.2 K/mm3 (4.5-11.0) H 08/02/21 04:22 Hgb 7.5 gm/dl (10.1-14.3) L 08/02/21 04:22 Hct 24.0 % (30.3-42.9) L 08/02/21 04:22 MCV 77 fl (79-97) L 08/02/21 04:22 Plt Count 49 K/mm3 (140-440) L 08/02/21 04:22 Add Manual Diff Complete 08/02/21 04:22 Total Counted 100 08/02/21 04:22 Seg Neuts % (Manual) 88.0 % (40.0-70.0) H 08/02/21 04:22 Band Neutrophils % 0 % 08/02/21 04:22 Lymphocytes % (Manual) 10.0 % (13.4-35.0) L 08/02/21 04:22 Reactive Lymphs % (Man) 0 % 08/02/21 04:22 Monocytes % (Manual) 0 % (0.0-7.3) 08/02/21 04:22 Eosinophils % (Manual) 2.0 % (0.0-4.3) 08/02/21 04:22 Basophils % (Manual) 0 % (0.0-1.8) 08/02/21 04:22 Metamyelocytes % 0 % 08/02/21 04:22 Myelocytes % 0 % 08/02/21 04:22 Promyelocytes % 0 % 08/02/21 04:22 Blast Cells % 0 % 08/02/21 04:22 Nucleated RBC % 2.0 % (0.0-0.9) H 08/02/21 04:22 Seg Neutrophils # Man 13.4 K/mm3 (1.8-7.7) H 08/02/21 04:22 Band Neutrophils # 0.0 K/mm3 08/02/21 04:22 Lymphocytes # (Manual) 1.5 K/mm3 (1.2-5.4) 08/02/21 04:22 Abs React Lymphs (Man) 0.0 K/mm3 08/02/21 04:22 Monocytes # (Manual) 0.0 K/mm3 (0.0-0.8) 08/02/21 04:22 Eosinophils # (Manual) 0.3 K/mm3 (0.0-0.4) 08/02/21 04:22 Basophils # (Manual) 0.0 K/mm3 (0.0-0.1) 08/02/21 04:22 Metamyelocytes # 0.0 K/mm3 08/02/21 04:22 Myelocytes # 0.0 K/mm3 08/02/21 04:22 Promyelocytes # 0.0 K/mm3 08/02/21 04:22 Blast Cells # 0.0 K/mm3 08/02/21 04:22 WBC Morphology Not Reportable 08/02/21 04:22 Hypersegmented Neuts Not Reportable 08/02/21 04:22 Hyposegmented Neuts Not Reportable 08/02/21 04:22 Hypogranular Neuts Not Reportable 08/02/21 04:22 Smudge Cells Not Reportable 08/02/21 04:22 Toxic Granulation Not Reportable 08/02/21 04:22 Toxic Vacuolation Not Reportable 08/02/21 04:22 Dohle Bodies Not Reportable 08/02/21 04:22 Pelger-Huet Anomaly Not Reportable 08/02/21 04:22 Mathieu Rods Not Reportable 08/02/21 04:22 Platelet Estimate Consistent w auto 08/02/21 04:22 Clumped Platelets Not Reportable 08/02/21 04:22 Plt Clumps, EDTA Not Reportable 08/02/21 04:22 Large Platelets Not Reportable 08/02/21 04:22 Giant Platelets Not Reportable 08/02/21 04:22 Platelet Satelliting Not Reportable 08/02/21 04:22 Plt Morphology Comment Not Reportable 08/02/21 04:22 RBC Morphology Not Reportable 08/02/21 04:22 Dimorphic RBCs Not Reportable 08/02/21 04:22 Polychromasia Not Reportable 08/02/21 04:22 Hypochromasia 1+ 08/02/21 04:22 Poikilocytosis Not Reportable 08/02/21 04:22 Anisocytosis 3+ 08/02/21 04:22 Microcytosis Not Reportable 08/02/21 04:22 Macrocytosis 1+ 08/02/21 04:22 Spherocytes Not Reportable 08/02/21 04:22 Pappenheimer Bodies Not Reportable 08/02/21 04:22 Sickle Cells Not Reportable 08/02/21 04:22 Target Cells Not Reportable 08/02/21 04:22 Tear Drop Cells Few 08/02/21 04:22 Ovalocytes Few 08/02/21 04:22 Helmet Cells Not Reportable 08/02/21 04:22 [place] Bodies Not Reportable 08/02/21 04:22 [place] Rings Not Reportable 08/02/21 04:22 Bishnu Cells Not Reportable 08/02/21 04:22 Bite Cells Not Reportable 08/02/21 04:22 Crenated Cell Not Reportable 08/02/21 04:22 Elliptocytes Not Reportable 08/02/21 04:22 Acanthocytes (Spur) Not Reportable 08/02/21 04:22 Rouleaux Not Reportable 08/02/21 04:22 Hemoglobin C Crystals Not Reportable 08/02/21 04:22 Schistocytes Not Reportable 08/02/21 04:22 Malaria parasites Not Reportable 08/02/21 04:22 Hector Bodies Not Reportable 08/02/21 04:22 Hem Pathologist Commnt No 08/02/21 04:22 PT 15.5 Sec. (12.2-14.9) H 07/31/21 22:42 INR 1.10 (0.87-1.13) 07/31/21 22:42 APTT 23.9 Sec. (24.2-36.6) L 07/31/21 22:42 Fibrinogen 309 mg/dl (211-480) 08/02/21 04:22 D-Dimer 594.69 ng/mlDDU (0-234) H 08/02/21 04:22 Sodium 139 mmol/L (137-145) 08/01/21 06:31 Potassium 3.6 mmol/L (3.6-5.0) 08/01/21 06:31 Chloride 110.0 mmol/L (98-107) H 08/01/21 06:31 Carbon Dioxide 20 mmol/L (22-30) L 08/01/21 06:31 Anion Gap 13 mmol/L 08/01/21 06:31 BUN 3 mg/dL (7-17) L 08/01/21 06:31 Creatinine 0.5 mg/dL (0.6-1.2) L 08/01/21 06:31 Estimated GFR > 60 ml/min 08/01/21 06:31 BUN/Creatinine Ratio 6 % 08/01/21 06:31 Glucose 98 mg/dL (65-100) 08/01/21 06:31 Calcium 8.3 mg/dL (8.4-10.2) L 08/01/21 06:31 Phosphorus 3.40 mg/dL (2.5-4.5) 07/31/21 10:03 Magnesium 1.90 mg/dL (1.7-2.3) 08/01/21 06:31 Total Bilirubin < 0.20 mg/dL (0.1-1.2) 07/31/21 06:40 AST 12 units/L (5-40) 07/31/21 06:40 ALT 6 units/L (7-56) L 07/31/21 06:40 Alkaline Phosphatase 48 units/L (35-129) 07/31/21 06:40 Lactate Dehydrogenase 227 units/L (91-180) H 08/02/21 04:22 Troponin T < 0.010 ng/mL (0.00-0.029) 07/31/21 10:03 Total Protein 5.4 g/dL (6.3-8.2) L 07/31/21 06:40 Albumin 3.3 g/dL (3.9-5) L 07/31/21 06:40 Albumin/Globulin Ratio 1.6 % 07/31/21 06:40 HCG, Qual Negative (Negative) 07/31/21 06:40 Blood Type B POSITIVE 07/31/21 06:44 Antibody Screen Negative 07/31/21 06:44 Direct Antiglob Test Negative 08/02/21 04:22 JULIET, Poly Interpret Negative 08/02/21 04:22 Crossmatch See Detail 07/31/21 06:44 Objective - Constitutional Vitals: Last Vital Signs Temp 98.5 F 08/02/21 04:00 Pulse 63 08/02/21 06:00 Resp 18 08/02/21 06:00 BP 168/84 08/02/21 06:00 Pulse Ox 97 08/02/21 06:00 - Labs Lab Results: Laboratory Results - last 24 hr 08/02/21 08/02/21 08/02/21 04:22 04:22 04:22 WBC RBC Hgb Hct MCV MCH MCHC RDW Plt Count Add Manual Diff Total Counted Seg Neuts % (Manual) Band Neutrophils % Lymphocytes % (Manual) Reactive Lymphs % (Man) Monocytes % (Manual) Eosinophils % (Manual) Basophils % (Manual) Metamyelocytes % Myelocytes % Promyelocytes % Blast Cells % Nucleated RBC % Seg Neutrophils # Man Band Neutrophils # Lymphocytes # (Manual) Abs React Lymphs (Man) Monocytes # (Manual) Eosinophils # (Manual) Basophils # (Manual) Metamyelocytes # Myelocytes # Promyelocytes # Blast Cells # WBC Morphology Hypersegmented Neuts Hyposegmented Neuts Hypogranular Neuts Smudge Cells Toxic Granulation Toxic Vacuolation Dohle Bodies Pelger-Huet Anomaly Mathieu Rods Platelet Estimate Clumped Platelets Plt Clumps, EDTA Large Platelets Giant Platelets Platelet Satelliting Plt Morphology Comment RBC Morphology Dimorphic RBCs Polychromasia Hypochromasia Poikilocytosis Anisocytosis Microcytosis Macrocytosis Spherocytes Pappenheimer Bodies Sickle Cells Target Cells Tear Drop Cells Ovalocytes Helmet Cells [place] Bodies [place] Rings Bishnu Cells Bite Cells Crenated Cell Elliptocytes Acanthocytes (Spur) Rouleaux Hemoglobin C Crystals Schistocytes Malaria parasites Hector Bodies Hem Pathologist Commnt Fibrinogen 309 D-Dimer 594.69 H Lactate Dehydrogenase 227 H Direct Antiglob Test Negative JULIET, Poly Interpret Negative 08/02/21 04:22 WBC 15.2 H RBC 3.11 L Hgb 7.5 L Hct 24.0 L MCV 77 L MCH 24 L MCHC 31 RDW 32.1 H Plt Count 49 L Add Manual Diff Complete Total Counted 100 Seg Neuts % (Manual) 88.0 H Band Neutrophils % 0 Lymphocytes % (Manual) 10.0 L Reactive Lymphs % (Man) 0 Monocytes % (Manual) 0 Eosinophils % (Manual) 2.0 Basophils % (Manual) 0 Metamyelocytes % 0 Myelocytes % 0 Promyelocytes % 0 Blast Cells % 0 Nucleated RBC % 2.0 H Seg Neutrophils # Man 13.4 H Band Neutrophils # 0.0 Lymphocytes # (Manual) 1.5 Abs React Lymphs (Man) 0.0 Monocytes # (Manual) 0.0 Eosinophils # (Manual) 0.3 Basophils # (Manual) 0.0 Metamyelocytes # 0.0 Myelocytes # 0.0 Promyelocytes # 0.0 Blast Cells # 0.0 WBC Morphology Not Reportable Hypersegmented Neuts Not Reportable Hyposegmented Neuts Not Reportable Hypogranular Neuts Not Reportable Smudge Cells Not Reportable Toxic Granulation Not Reportable Toxic Vacuolation Not Reportable Dohle Bodies Not Reportable Pelger-Huet Anomaly Not Reportable Mathieu Rods Not Reportable Platelet Estimate Consistent w auto Clumped Platelets Not Reportable Plt Clumps, EDTA Not Reportable Large Platelets Not Reportable Giant Platelets Not Reportable Platelet Satelliting Not Reportable Plt Morphology Comment Not Reportable RBC Morphology Not Reportable Dimorphic RBCs Not Reportable Polychromasia Not Reportable Hypochromasia 1+ Poikilocytosis Not Reportable Anisocytosis 3+ Microcytosis Not Reportable Macrocytosis 1+ Spherocytes Not Reportable Pappenheimer Bodies Not Reportable Sickle Cells Not Reportable Target Cells Not Reportable Tear Drop Cells Few Ovalocytes Few Helmet Cells Not Reportable [place] Bodies Not Reportable [place] Rings Not Reportable [place] Cells Not Reportable Bite Cells Not Reportable Crenated Cell Not Reportable Elliptocytes Not Reportable Acanthocytes (Spur) Not Reportable Rouleaux Not Reportable Hemoglobin C Crystals Not Reportable Schistocytes Not Reportable Malaria parasites Not Reportable Hector Bodies Not Reportable Hem Pathologist Commnt No Fibrinogen D-Dimer Lactate Dehydrogenase Direct Antiglob Test JULIET, Poly Interpret Medications & Allergies - Medications Allergies/Adverse Reactions: Allergies No Known Allergies Allergy (Unverified 07/30/21 23:08) Home Medications: Home Medications Medication Instructions Recorded Confirmed Last Taken Type medroxyPROGESTERone ACETATE 10 mg PO QHS #30 08/01/21 Unknown Rx [Provera] Active Medications: Generic Name Dose Route Start Last Admin Trade Name Freq PRN Reason Stop Dose Admin Acetaminophen 650 mg 07/31/21 10:00 08/02/21 04:48 Acetaminophen 325 Mg Tab PO 650 mg Q4H PRN Administration Pain MILD(1-3)/Fever >100.5/DURBIN Amiodarone HCl 900 mg/ 500 mls @ 33.333 mls/hr 07/31/21 16:00 08/01/21 18:31 Dextrose IV 0.5 mg/min DIRECT MÓNICA 16.667 mls/hr Administration Protocol 1 MG/MIN Medroxyprogesterone Acetate 10 mg 08/01/21 17:00 Medroxyprogesterone Acetate 5 Mg Tab PO QDAY MÓNICA Metoprolol Tartrate 12.5 mg 07/31/21 15:00 08/01/21 22:16 Metoprolol Tartrate 25 Mg Tab PO 12.5 mg BID MÓNICA Administration Ondansetron HCl 4 mg 07/31/21 10:00 Ondansetron 4 Mg/2 Ml Inj IV Q8H PRN Nausea And Vomiting Sodium Chloride 10 ml 07/31/21 10:00 08/02/21 06:15 Sodium Chloride 0.9% 10 Ml Flush Syringe IV Not Given BID MÓNICA Sodium Chloride 10 ml 07/31/21 10:00 08/02/21 06:14 Sodium Chloride 0.9% 10 Ml Flush Syringe IV 10 ml PRN PRN Administration LINE FLUSH Sucralfate 1 gm 08/01/21 16:30 08/02/21 06:16 Sucralfate 1 Gm Tab PO 1 gm ACHS MÓNICA Administration
--- NOTE | 2021-08-02 10:11 | Progress Note ---
Assessment and Plan Assessment and plan: Hospital Course: 08/02: D/w cardiology who are ok with discontinuation of amiodorone. Patient will likely get OP procedure for hysterectomy. In the interim, platelet count remains low. D/w Hematology who believes patient likely has ITP. Recommends continuation of solumedrol until platelet count improves over 50K consistently. Anticipate discharge on Thursday. Will order cbc for tomorrow. Assessment and Plan # Ventricular Tachycardia (resolved) - intermittent bursts on tele - suspect this is due to severe anemia - continuous tele monitoring - ECHO: ef 55-60%, mild dilation. please refer to official report -continue metoprolol 12.5 mg po bid - cardiology consultation, recommends amiodorone bolus + drip - no further episodes seen on 08/01 encounter in afternoon, suspect VT was driven by severe anemia, will follow final cardiology recs. # Menorrhagia (improving) - day 3 of 7 in menstrual cycle, prior cycle normal second episode, prior admission at [facility] x 2 yrs - VSS, hgb 2.9 - hcg qual negative - Pelvic US: enlarged uterus with hyperchoic lesions, fibroids visualized (please refer to radiology report) - 3 units prbc ordered, f/u cbc ordered - Estrogen 25 mg IV q6hr - Can consider TXA if bleeding is refractory to therapy. 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 - hematology consultation for anemia/thrombocytopenia # Symptomatic Anemia - 2/2 heavy vaginal bleeding during mentrual cycle, has history of anemia and takes iron supplements. - hgb : 2.9 - s/p 3 units prbc, f/u cbc ordered - monitor H/H, transfuse prn Hgb < 7 - fibrinogen 175 -> 309 - resume home iron supplementation - ferlicitIV - hematology consultation #ITP - lisbet test pending - plt: 21k--> 66K -- > 49K - transfuse prn < 20k - continue solumedrol 1mg/kg IV bid until plt ct > 50K consistently - hematology consultation, recommendations noted. # Nicotine Abuse. - Cigarettes 1 pack per week - behavioral health counseling administered which included education on benefits of smoking cessation as well as options for quitting. +15 min. #Advance care planning Disease education conducted, care plan discussed, diagnoses discussed, prognosis discussed, patient is full code, patient acknowledges understanding and agree with care plan, +30 minutes. Level of Care: IMCU The high probability of a clinically significant, sudden or life threatening deterioration of the [cardiac,engraver seals,heme] system(s) required my full and direct attention, intervention and personal management. The aggregate critical care time was [60] minutes. This time is in addition to time spent performing reported procedures but includes the following: [x] Data Review and interpretation [x] Patient assessment and monitoring of vital signs [x] Documentation [x] Medication orders and management History Interval history: Patient was seen and examined on bedside encounter. She had no acute complaints of active bleeding and states that she is only spotting today. She does state that her arms are painful at IV insertion sites but states that it is improving once they were removed. She denies any bruising on her extremities. She denies any heart palpitations or chest pain this morning. Hospitalist Physical - Physical exam Narrative exam: Physical Exam: VITAL SIGNS: Reviewed. GENERAL: The patient appears normally developed, Vital signs as documented. pleasant, NAD. HEAD: No signs of head trauma. EYES: Pupils are equal. Extraocular motions intact. Pale icterus EARS: Hearing grossly intact. MOUTH: Oropharynx is normal. NECK: No adenopathy, no JVD. CHEST: Chest with clear breath sounds bilaterally. No wheezes, rales, or rhonc hi. CARDIAC: Regular rate and rhythm. no VT episodes visualized on monitor. pulse rate 54 NSR. S1 and S2, without murmurs, gallops, or rubs. VASCULAR: No Edema. Peripheral pulses normal and equal in all extremities. ABDOMEN: Soft, non tender and non distended. No rebound or guarding, and no masses palpated. Bowel Sounds normal. MUSCULOSKELETAL: Good range of motion of all major joints. Extremities without clubbing, cyanosis or edema. NEUROLOGIC EXAM: Alert and oriented x 4. no focal sensory or strength deficits. PSYCHIATRIC: Mood normal. SKIN: Pale skin, nail beds pale. detail exam as documented in skin assessment - Constitutional Vitals: Temp Pulse Resp BP Pulse Ox 98.5 F 63 18 168/84 97 08/02/21 04:00 08/02/21 06:00 08/02/21 06:00 08/02/21 06:00 08/02/21 06:00 General appearance: Present: no acute distress, well-nourished HEART Score - HEART Score Troponin: Troponin T < 0.010 ng/mL (0.00-0.029) 07/31/21 10:03 Results - Labs CBC & Chem 7: 08/02/21 04:22 08/01/21 06:31 Labs: Laboratory Last Values WBC 15.2 K/mm3 (4.5-11.0) H 08/02/21 04:22 RBC 3.11 M/mm3 (3.65-5.03) L 08/02/21 04:22 Hgb 7.5 gm/dl (10.1-14.3) L 08/02/21 04:22 Hct 24.0 % (30.3-42.9) L 08/02/21 04:22 MCV 77 fl (79-97) L 08/02/21 04:22 MCH 24 pg (28-32) L 08/02/21 04:22 MCHC 31 % (30-34) 08/02/21 04:22 RDW 32.1 % (13.2-15.2) H 08/02/21 04:22 Plt Count 49 K/mm3 (140-440) L 08/02/21 04:22 Add Manual Diff Complete 08/02/21 04:22 Total Counted 100 08/02/21 04:22 Seg Neuts % (Manual) 88.0 % (40.0-70.0) H 08/02/21 04:22 Band Neutrophils % 0 % 08/02/21 04:22 Lymphocytes % (Manual) 10.0 % (13.4-35.0) L 08/02/21 04:22 Reactive Lymphs % (Man) 0 % 08/02/21 04:22 Monocytes % (Manual) 0 % (0.0-7.3) 08/02/21 04:22 Eosinophils % (Manual) 2.0 % (0.0-4.3) 08/02/21 04:22 Basophils % (Manual) 0 % (0.0-1.8) 08/02/21 04:22 Metamyelocytes % 0 % 08/02/21 04:22 Myelocytes % 0 % 08/02/21 04:22 Promyelocytes % 0 % 08/02/21 04:22 Blast Cells % 0 % 08/02/21 04:22 Nucleated RBC % 2.0 % (0.0-0.9) H 08/02/21 04:22 Seg Neutrophils # Man 13.4 K/mm3 (1.8-7.7) H 08/02/21 04:22 Band Neutrophils # 0.0 K/mm3 08/02/21 04:22 Lymphocytes # (Manual) 1.5 K/mm3 (1.2-5.4) 08/02/21 04:22 Abs React Lymphs (Man) 0.0 K/mm3 08/02/21 04:22 Monocytes # (Manual) 0.0 K/mm3 (0.0-0.8) 08/02/21 04:22 Eosinophils # (Manual) 0.3 K/mm3 (0.0-0.4) 08/02/21 04:22 Basophils # (Manual) 0.0 K/mm3 (0.0-0.1) 08/02/21 04:22 Metamyelocytes # 0.0 K/mm3 08/02/21 04:22 Myelocytes # 0.0 K/mm3 08/02/21 04:22 Promyelocytes # 0.0 K/mm3 08/02/21 04:22 Blast Cells # 0.0 K/mm3 08/02/21 04:22 WBC Morphology Not Reportable 08/02/21 04:22 Hypersegmented Neuts Not Reportable 08/02/21 04:22 Hyposegmented Neuts Not Reportable 08/02/21 04:22 Hypogranular Neuts Not Reportable 08/02/21 04:22 Smudge Cells Not Reportable 08/02/21 04:22 Toxic Granulation Not Reportable 08/02/21 04:22 Toxic Vacuolation Not Reportable 08/02/21 04:22 Dohle Bodies Not Reportable 08/02/21 04:22 Pelger-Huet Anomaly Not Reportable 08/02/21 04:22 Mathieu Rods Not Reportable 08/02/21 04:22 Platelet Estimate Consistent w auto 08/02/21 04:22 Clumped Platelets Not Reportable 08/02/21 04:22 Plt Clumps, EDTA Not Reportable 08/02/21 04:22 Large Platelets Not Reportable 08/02/21 04:22 Giant Platelets Not Reportable 08/02/21 04:22 Platelet Satelliting Not Reportable 08/02/21 04:22 Plt Morphology Comment Not Reportable 08/02/21 04:22 RBC Morphology Not Reportable 08/02/21 04:22 Dimorphic RBCs Not Reportable 08/02/21 04:22 Polychromasia Not Reportable 08/02/21 04:22 Hypochromasia 1+ 08/02/21 04:22 Poikilocytosis Not Reportable 08/02/21 04:22 Anisocytosis 3+ 08/02/21 04:22 Microcytosis Not Reportable 08/02/21 04:22 Macrocytosis 1+ 08/02/21 04:22 Spherocytes Not Reportable 08/02/21 04:22 Pappenheimer Bodies Not Reportable 08/02/21 04:22 Sickle Cells Not Reportable 08/02/21 04:22 Target Cells Not Reportable 08/02/21 04:22 Tear Drop Cells Few 08/02/21 04:22 Ovalocytes Few 08/02/21 04:22 Helmet Cells Not Reportable 08/02/21 04:22 Quiñonez-[place] Bodies Not Reportable 08/02/21 04:22 [place] Rings Not Reportable 08/02/21 04:22 Bishnu Cells Not Reportable 08/02/21 04:22 Bite Cells Not Reportable 08/02/21 04:22 Crenated Cell Not Reportable 08/02/21 04:22 Elliptocytes Not Reportable 08/02/21 04:22 Acanthocytes (Spur) Not Reportable 08/02/21 04:22 Rouleaux Not Reportable 08/02/21 04:22 Hemoglobin C Crystals Not Reportable 08/02/21 04:22 Schistocytes Not Reportable 08/02/21 04:22 Malaria parasites Not Reportable 08/02/21 04:22 Hector Bodies Not Reportable 08/02/21 04:22 Hem Pathologist Commnt No 08/02/21 04:22 PT 15.5 Sec. (12.2-14.9) H 07/31/21 22:42 INR 1.10 (0.87-1.13) 07/31/21 22:42 APTT 23.9 Sec. (24.2-36.6) L 07/31/21 22:42 Fibrinogen 309 mg/dl (211-480) 08/02/21 04:22 D-Dimer 594.69 ng/mlDDU (0-234) H 08/02/21 04:22 Sodium 139 mmol/L (137-145) 08/01/21 06:31 Potassium 3.6 mmol/L (3.6-5.0) 08/01/21 06:31 Chloride 110.0 mmol/L (98-107) H 08/01/21 06:31 Carbon Dioxide 20 mmol/L (22-30) L 08/01/21 06:31 Anion Gap 13 mmol/L 08/01/21 06:31 BUN 3 mg/dL (7-17) L 08/01/21 06:31 Creatinine 0.5 mg/dL (0.6-1.2) L 08/01/21 06:31 Estimated GFR > 60 ml/min 08/01/21 06:31 BUN/Creatinine Ratio 6 % 08/01/21 06:31 Glucose 98 mg/dL (65-100) 08/01/21 06:31 Calcium 8.3 mg/dL (8.4-10.2) L 08/01/21 06:31 Phosphorus 3.40 mg/dL (2.5-4.5) 07/31/21 10:03 Magnesium 1.90 mg/dL (1.7-2.3) 08/01/21 06:31 Total Bilirubin < 0.20 mg/dL (0.1-1.2) 07/31/21 06:40 AST 12 units/L (5-40) 07/31/21 06:40 ALT 6 units/L (7-56) L 07/31/21 06:40 Alkaline Phosphatase 48 units/L (35-129) 07/31/21 06:40 Lactate Dehydrogenase 227 units/L (91-180) H 08/02/21 04:22 Troponin T < 0.010 ng/mL (0.00-0.029) 07/31/21 10:03 Total Protein 5.4 g/dL (6.3-8.2) L 07/31/21 06:40 Albumin 3.3 g/dL (3.9-5) L 07/31/21 06:40 Albumin/Globulin Ratio 1.6 % 07/31/21 06:40 HCG, Qual Negative (Negative) 07/31/21 06:40 Blood Type B POSITIVE 07/31/21 06:44 Antibody Screen Negative 07/31/21 06:44 Direct Antiglob Test Negative 08/02/21 04:22 JULIET, Poly Interpret Negative 08/02/21 04:22 Crossmatch See Detail 07/31/21 06:44 Olson/IV: Voiding Method Toilet Active Medications - Current Medications Current Medications: Generic Name Dose Route Start Last Admin Trade Name Freq PRN Reason Stop Dose Admin Acetaminophen 650 mg 07/31/21 10:00 08/02/21 04:48 Acetaminophen 325 Mg Tab PO 650 mg Q4H PRN Administration Pain MILD(1-3)/Fever >100.5/DURBIN Amiodarone HCl 900 mg/ 500 mls @ 33.333 mls/hr 07/31/21 16:00 08/01/21 18:31 Dextrose IV 0.5 mg/min DIRECT MÓNICA 16.667 mls/hr Administration Protocol 1 MG/MIN Medroxyprogesterone Acetate 10 mg 08/01/21 17:00 Medroxyprogesterone Acetate 5 Mg Tab PO QDAY MÓNICA Methylprednisolone Sodium Succinate 100 mg 08/02/21 11:00 Methylprednisolone Sod Succinate 125 Mg/2 Ml Inj IV 08/04/21 10:59 Q12H MÓNICA Metoprolol Tartrate 12.5 mg 07/31/21 15:00 08/01/21 22:16 Metoprolol Tartrate 25 Mg Tab PO 12.5 mg BID MÓNICA Administration Ondansetron HCl 4 mg 07/31/21 10:00 Ondansetron 4 Mg/2 Ml Inj IV Q8H PRN Nausea And Vomiting Sodium Chloride 10 ml 07/31/21 10:00 08/02/21 06:15 Sodium Chloride 0.9% 10 Ml Flush Syringe IV Not Given BID MÓNICA Sodium Chloride 10 ml 07/31/21 10:00 08/02/21 06:14 Sodium Chloride 0.9% 10 Ml Flush Syringe IV 10 ml PRN PRN Administration LINE FLUSH Sucralfate 1 gm 08/01/21 16:30 08/02/21 06:16 Sucralfate 1 Gm Tab PO 1 gm ACHS MÓNICA Administration
[2021-08-02] MEDS: medroxyPROGESTERone ACETATE 5 MG TAB PO SCH (11:37)
[2021-08-02] MEDS: methylPREDNISolone Sod Succinate 125 MG/2 ML INJ IV SCH (11:37)
[2021-08-02] MEDS ORDERED: SODIUM FERRIC GLUCON/SUCRO 125 MG in SODIUM CHLORIDE 0.9% 100 ML IV ONE (12:00)
--- NOTE | 2021-08-02 13:46 | Progress Note ---
Assessment and Plan This is a pleasant 46-year-old -[place]og[place] female, unknown to our practice, with past medical history of anemia and heavy menstrual cycles who presented to ED after passing several large vaginal blood clots at home while on menstrual cycle. 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 LV is mildly dilated. Mild concentric LVH. Mild diastolic dysfunction is present. No pericardial effusion Plan: Patient's H&H has improved however patient remains anemic. Continue to monitor recommend blood transfusion if patient is hemoglobin less than 7 At time of assessment same patient was not currently on monitor however telemetry reviewed and it appears that patient was trending sinus 60s 70s on monitor Patient did not have any further episodes of V. tach on monitor. We will stop amiodarone drip V. tach most likely a result of severe anemia Cardiac status appears otherwise stable Patient seen in conjunction with Dr. Kelley who agrees with the assessment and management of this patient. - Patient Problems (1) Menorrhagia Current Visit: Yes Status: Acute (2) Palpitation Current Visit: Yes Status: Acute (3) Symptomatic anemia Current Visit: Yes Status: Acute (4) Thrombocytopenia Current Visit: Yes Status: Acute (5) Ventricular tachycardia Current Visit: Yes Status: Acute Subjective Date of service: 08/02/21 Principal diagnosis: Anemia/V. tach Interval history: Patient resting in bed in no acute distress Patient not on currently on monitor however previously patient appeared to be sinus rhythm 60s to 70s. Patient did not appear to have any further episodes of V. tach Objective Vital Signs Temp Pulse Pulse Resp BP Pulse Ox 08/02/21 11:31 61 164/79 08/02/21 06:00 63 18 168/84 97 08/02/21 05:00 61 20 168/90 100 08/02/21 04:01 66 17 97 08/02/21 04:00 98.5 F 72 98 08/02/21 03:00 60 23 150/79 96 08/02/21 02:00 57 L 22 149/80 94 08/02/21 01:00 61 21 162/84 94 08/02/21 00:00 98.8 F 63 72 23 176/93 99 08/01/21 23:00 62 24 176/89 100 08/01/21 22:00 62 20 178/90 100 08/01/21 21:00 64 23 168/90 99 08/01/21 20:23 61 16 168/88 100 08/01/21 20:00 98.5 F 67 66 12 168/88 98 08/01/21 19:01 62 25 H 160/104 100 08/01/21 18:00 61 21 161/84 100 08/01/21 17:30 98.5 F 08/01/21 17:01 61 10 L 162/80 89 08/01/21 16:00 67 156/81 100 08/01/21 15:00 159/121 95 08/01/21 14:01 172/85 99 - Physical Examination General: No Apparent Distress HEENT: Positive: Normocephaly, Mucus Membranes Moist Neck: Positive: neck supple, trachea midline Cardiac: Positive: Reg Rate and Rhythm Lungs: Positive: Normal Breath Sounds Neuro: Positive: Grossly Intact Abdomen: Positive: Soft, Active Bowel Sounds Skin: Negative: Rash Extremities: Present: warm. Absent: edema - Labs and Meds Cardiac Enzymes 08/02/21 Range/Units 04:22 Lactate Dehydrogenase 227 H (91-180) units/L CBC 08/02/21 Range/Units 04:22 WBC 15.2 H (4.5-11.0) K/mm3 RBC 3.11 L (3.65-5.03) M/mm3 Hgb 7.5 L (10.1-14.3) gm/dl Hct 24.0 L (30.3-42.9) % Plt Count 49 L (140-440) K/mm3 - Imaging and Cardiology EKG: report reviewed Echo: report reviewed - Telemetry EKG Rhythm: Sinus Rhythm - EKG Sinus rhythms and dysrhythmias: sinus rhythm
[2021-08-02] MEDS: LIDOCAINE 5% 1 EACH PATCH TD SCH (17:42)
[2021-08-02] MEDS ORDERED: diphenhydrAMINE 50 MG/ML VIAL ONE (19:25)
[2021-08-03] MEDS: ACETAMINOPHEN 325 MG TAB PO PRN ×2 (01:15→19:54)
[2021-08-03 05:05] LABS: Hematocrit 26.1 % (30.3-42.9); Hemoglobin 8.2 gm/dl (10.1-14.3); Mean Corpuscular HGB Conc 31 % (30-34); Mean Corpuscular Volume 78 fl (79-97); Red Blood Count 3.35 M/mm3 (3.65-5.03)
[2021-08-03 05:08] LABS: Platelet Count 101 K/mm3 (140-440)
[2021-08-03 06:51] LABS: Basophils % (Manual) 0 % (0.0-1.8); Eosinophils % (Manual) 0 % (0.0-4.3); Total Cells Counted 100
[2021-08-03 06:54] LABS: Anisocytosis 3+; Hypochromasia 2+; Macrocytosis 1+; Ovalocytes 1+; Tear Drop Cells Few
[2021-08-03 06:55] LABS: Platelet Estimate Consistent w Auto
[2021-08-03 06:57] LABS: Mean Platelet Volume 8.9 fl (6-12)
[2021-08-03] MEDS: methylPREDNISolone Sod Succinate 125 MG/2 ML INJ IV SCH ×3 (07:24→22:08)
[2021-08-03] MEDS: SUCRALFATE 1 GM TAB PO SCH ×4 (10:00→22:09)
[2021-08-03] MEDS: METOPROLOL TARTRATE 25 MG TAB PO SCH ×3 (10:00→22:09)
[2021-08-03] MEDS: medroxyPROGESTERone ACETATE 5 MG TAB PO SCH (10:00)
[2021-08-03] MEDS: LIDOCAINE 5% 1 EACH PATCH TD SCH (13:25)
--- NOTE | 2021-08-03 13:35 | Progress Note ---
Assessment and Plan Assessment and plan: Hospital Course: 08/02: D/w cardiology who are ok with discontinuation of amiodorone. Patient will likely get OP procedure for hysterectomy. In the interim, platelet count remains low. D/w Hematology who believes patient likely has ITP. Recommends continuation of solumedrol until platelet count improves over 50K consistently. Anticipate discharge on Thursday. Will order cbc for tomorrow. 08/03: Plt improved to 100K. Will order follow up cbc for tomorrow. Once cleared by hematology, will discharge patient home with instructions to follow up outpatient with hematology. Assessment and Plan # Ventricular Tachycardia (resolved) - intermittent bursts on tele - suspect this is due to severe anemia - continuous tele monitoring - ECHO: ef 55-60%, mild dilation. please refer to official report -continue metoprolol 12.5 mg po bid - cardiology consultation, recommends amiodorone bolus + drip - no further episodes seen on 08/01 encounter in afternoon, suspect VT was driven by severe anemia, will follow final cardiology recs. # Menorrhagia (improving) - day 3 of 7 in menstrual cycle, prior cycle normal second episode, prior admission at [facility] x 2 yrs - VSS, hgb 2.9 - hcg qual negative - Pelvic US: enlarged uterus with hyperchoic lesions, fibroids visualized (please refer to radiology report) - 3 units prbc ordered, f/u cbc ordered - Estrogen 25 mg IV q6hr - Can consider TXA if bleeding is refractory to therapy. 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 - hematology consultation for anemia/thrombocytopenia # Symptomatic Anemia - 2/2 heavy vaginal bleeding during mentrual cycle, has history of anemia and takes iron supplements. - hgb : 2.9 - s/p 3 units prbc, f/u cbc ordered - monitor H/H, transfuse prn Hgb < 7 - fibrinogen 175 -> 309 - resume home iron supplementation - ferlicitIV - hematology consultation #ITP - lisbet test pending - plt: 21k--> 66K -- > 49K - transfuse prn < 20k - continue solumedrol 1mg/kg IV bid until plt ct > 50K consistently - hematology consultation, recommendations noted. # Nicotine Abuse. - Cigarettes 1 pack per week - behavioral health counseling administered which included education on benefits of smoking cessation as well as options for quitting. +15 min. #Advance care planning Disease education conducted, care plan discussed, diagnoses discussed, prognosis discussed, patient is full code, patient acknowledges understanding and agree with care plan, +30 minutes. Level of Care: IMCU The high probability of a clinically significant, sudden or life threatening deterioration of the [cardiac,grape picker,heme] system(s) required my full and direct attention, intervention and personal management. The aggregate critical care time was [60] minutes. This time is in addition to time spent performing reported procedures but includes the following: [x] Data Review and interpretation [x] Patient assessment and monitoring of vital signs [x] Documentation [x] Medication orders and management History Interval history: NO acute complaints. Hospitalist Physical - Physical exam Narrative exam: Physical Exam: VITAL SIGNS: Reviewed. GENERAL: The patient appears normally developed, Vital signs as documented. pleasant, NAD. HEAD: No signs of head trauma. EYES: Pupils are equal. Extraocular motions intact. Pale icterus EARS: Hearing grossly intact. MOUTH: Oropharynx is normal. NECK: No adenopathy, no JVD. CHEST: Chest with clear breath sounds bilaterally. No wheezes, rales, or rhonchi. CARDIAC: Regular rate and rhythm. no VT episodes visualized on monitor. pulse rate 54 NSR. S1 and S2, without murmurs, gallops, or rubs. VASCULAR: No Edema. Peripheral pulses normal and equal in all extremities. ABDOMEN: Soft, non tender and non distended. No rebound or guarding, and no masses palpated. Bowel Sounds normal. MUSCULOSKELETAL: Good range of motion of all major joints. Extremities without clubbing, cyanosis or edema. NEUROLOGIC EXAM: Alert and oriented x 4. no focal sensory or strength deficits. PSYCHIATRIC: Mood normal. SKIN: Pale skin, nail beds pale. detail exam as documented in skin assessment - Constitutional Vitals: Temp Pulse Resp BP Pulse Ox 98.0 F 65 18 149/77 100 08/03/21 07:52 08/03/21 10:00 08/03/21 10:00 08/03/21 11:00 08/03/21 11:00 General appearance: Present: no acute distress, well-nourished HEART Score - HEART Score Troponin: Troponin T < 0.010 ng/mL (0.00-0.029) 07/31/21 10:03 Results - Labs CBC & Chem 7: 03/26/22 04:32 08/01/21 06:31 Labs: Laboratory Last Values WBC 26.6 K/mm3 (4.5-11.0) H 08/03/21 04:32 RBC 3.35 M/mm3 (3.65-5.03) L 08/03/21 04:32 Hgb 8.2 gm/dl (10.1-14.3) L 08/03/21 04:32 Hct 26.1 % (30.3-42.9) L 08/03/21 04:32 MCV 78 fl (79-97) L 08/03/21 04:32 MCH 24 pg (28-32) L 08/03/21 04:32 MCHC 31 % (30-34) 08/03/21 04:32 RDW 32.0 % (13.2-15.2) H 08/03/21 04:32 Plt Count 101 K/mm3 (140-440) L D 08/03/21 04:32 Add Manual Diff Complete 08/03/21 04:32 Total Counted 100 08/03/21 04:32 Seg Neutrophils % Deep Submergence Vehicle Operator 08/03/21 04:32 Seg Neuts % (Manual) 96.0 % (40.0-70.0) H 08/03/21 04:32 Band Neutrophils % 0 % 08/03/21 04:32 Lymphocytes % (Manual) 0 % (13.4-35.0) L 08/03/21 04:32 Reactive Lymphs % (Man) 0 % 08/03/21 04:32 Monocytes % (Manual) 4.0 % (0.0-7.3) 08/03/21 04:32 Eosinophils % (Manual) 0 % (0.0-4.3) 08/03/21 04:32 Basophils % (Manual) 0 % (0.0-1.8) 08/03/21 04:32 Metamyelocytes % 0 % 08/03/21 04:32 Myelocytes % 0 % 08/03/21 04:32 Promyelocytes % 0 % 08/03/21 04:32 Blast Cells % 0 % 08/03/21 04:32 Nucleated RBC % 2.0 % (0.0-0.9) H 08/03/21 04:32 Seg Neutrophils # Man 25.5 K/mm3 (1.8-7.7) H 08/03/21 04:32 Band Neutrophils # 0.0 K/mm3 08/03/21 04:32 Lymphocytes # (Manual) 0.0 K/mm3 (1.2-5.4) L 08/03/21 04:32 Abs React Lymphs (Man) 0.0 K/mm3 08/03/21 04:32 Monocytes # (Manual) 1.1 K/mm3 (0.0-0.8) H 08/03/21 04:32 Eosinophils # (Manual) 0.0 K/mm3 (0.0-0.4) 08/03/21 04:32 Basophils # (Manual) 0.0 K/mm3 (0.0-0.1) 08/03/21 04:32 Metamyelocytes # 0.0 K/mm3 08/03/21 04:32 Myelocytes # 0.0 K/mm3 08/03/21 04:32 Promyelocytes # 0.0 K/mm3 08/03/21 04:32 Blast Cells # 0.0 K/mm3 08/03/21 04:32 WBC Morphology Not Reportable 08/03/21 04:32 Hypersegmented Neuts Not Reportable 08/03/21 04:32 Hyposegmented Neuts Not Reportable 08/03/21 04:32 Hypogranular Neuts Not Reportable 08/03/21 04:32 Smudge Cells Not Reportable 08/03/21 04:32 Toxic Granulation Not Reportable 08/03/21 04:32 Toxic Vacuolation Not Reportable 08/03/21 04:32 Dohle Bodies Not Reportable 08/03/21 04:32 Pelger-Huet Anomaly Not Reportable 08/03/21 04:32 Mathieu Rods Not Reportable 08/03/21 04:32 Platelet Estimate Consistent w auto 08/03/21 04:32 Clumped Platelets Not Reportable 08/03/21 04:32 Plt Clumps, EDTA Not Reportable 08/03/21 04:32 Large Platelets Not Reportable 08/03/21 04:32 Giant Platelets Not Reportable 08/03/21 04:32 Platelet Satelliting Not Reportable 08/03/21 04:32 Plt Morphology Comment Not Reportable 08/03/21 04:32 RBC Morphology Not Reportable 08/03/21 04:32 Dimorphic RBCs Not Reportable 08/03/21 04:32 Polychromasia Not Reportable 08/03/21 04:32 Hypochromasia 2+ 08/03/21 04:32 Poikilocytosis Not Reportable 08/03/21 04:32 Anisocytosis 3+ 08/03/21 04:32 Microcytosis Not Reportable 08/03/21 04:32 Macrocytosis 1+ 08/03/21 04:32 Spherocytes Not Reportable 08/03/21 04:32 Pappenheimer Bodies Not Reportable 08/03/21 04:32 Sickle Cells Not Reportable 08/03/21 04:32 Target Cells Not Reportable 08/03/21 04:32 Tear Drop Cells Few 08/03/21 04:32 Ovalocytes 1+ 08/03/21 04:32 Helmet Cells Not Reportable 08/03/21 04:32 [place] Bodies Not Reportable 08/03/21 04:32 [place] Rings Not Reportable 08/03/21 04:32 [place] Cells Not Reportable 08/03/21 04:32 Bite Cells Not Reportable 08/03/21 04:32 Crenated Cell Not Reportable 08/03/21 04:32 Elliptocytes Not Reportable 08/03/21 04:32 Acanthocytes (Spur) Not Reportable 08/03/21 04:32 Rouleaux Not Reportable 08/03/21 04:32 Hemoglobin C Crystals Not Reportable 08/03/21 04:32 Schistocytes Not Reportable 08/03/21 04:32 Malaria parasites Not Reportable 08/03/21 04:32 Hector Bodies Not Reportable 08/03/21 04:32 Hem Pathologist Commnt No 08/03/21 04:32 PT 15.5 Sec. (12.2-14.9) H 07/31/21 22:42 INR 1.10 (0.87-1.13) 07/31/21 22:42 APTT 23.9 Sec. (24.2-36.6) L 07/31/21 22:42 Fibrinogen 309 mg/dl (211-480) 08/02/21 04:22 D-Dimer 594.69 ng/mlDDU (0-234) H 08/02/21 04:22 Sodium 139 mmol/L (137-145) 08/01/21 06:31 Potassium 3.6 mmol/L (3.6-5.0) 08/01/21 06:31 Chloride 110.0 mmol/L (98-107) H 08/01/21 06:31 Carbon Dioxide 20 mmol/L (22-30) L 08/01/21 06:31 Anion Gap 13 mmol/L 08/01/21 06:31 BUN 3 mg/dL (7-17) L 08/01/21 06:31 Creatinine 0.5 mg/dL (0.6-1.2) L 08/01/21 06:31 Estimated GFR > 60 ml/min 08/01/21 06:31 BUN/Creatinine Ratio 6 % 08/01/21 06:31 Glucose 98 mg/dL (65-100) 08/01/21 06:31 Calcium 8.3 mg/dL (8.4-10.2) L 08/01/21 06:31 Phosphorus 3.40 mg/dL (2.5-4.5) 07/31/21 10:03 Magnesium 1.90 mg/dL (1.7-2.3) 08/01/21 06:31 Total Bilirubin < 0.20 mg/dL (0.1-1.2) 07/31/21 06:40 AST 12 units/L (5-40) 07/31/21 06:40 ALT 6 units/L (7-56) L 07/31/21 06:40 Alkaline Phosphatase 48 units/L (35-129) 07/31/21 06:40 Lactate Dehydrogenase 227 units/L (91-180) H 08/02/21 04:22 Troponin T < 0.010 ng/mL (0.00-0.029) 07/31/21 10:03 Total Protein 5.4 g/dL (6.3-8.2) L 07/31/21 06:40 Albumin 3.3 g/dL (3.9-5) L 07/31/21 06:40 Albumin/Globulin Ratio 1.6 % 07/31/21 06:40 HCG, Qual Negative (Negative) 07/31/21 06:40 Blood Type B POSITIVE 07/31/21 06:44 Antibody Screen Negative 07/31/21 06:44 Direct Antiglob Test Negative 08/02/21 04:22 JULIET, Poly Interpret Negative 08/02/21 04:22 Crossmatch See Detail 07/31/21 06:44 Olson/IV: Voiding Method Toilet Active Medications - Current Medications Current Medications: Generic Name Dose Route Start Last Admin Trade Name Freq PRN Reason Stop Dose Admin Acetaminophen 650 mg 07/31/21 10:00 08/03/21 01:15 Acetaminophen 325 Mg Tab PO 650 mg Q4H PRN Administration Pain MILD(1-3)/Fever >100.5/DURBIN Lidocaine 1 each 08/02/21 14:00 08/03/21 13:25 Lidocaine 5% 1 Each Patch TD 1 each QDAY MÓNICA Administration Medroxyprogesterone Acetate 10 mg 08/01/21 17:00 08/03/21 10:00 Medroxyprogesterone Acetate 5 Mg Tab PO 10 mg QDAY MÓNICA Administration Methylprednisolone Sodium Succinate 100 mg 08/02/21 11:00 08/03/21 10:01 Methylprednisolone Sod Succinate 125 Mg/2 Ml Inj IV 08/04/21 10:59 100 mg Q12H MÓNICA Administration Metoprolol Tartrate 12.5 mg 07/31/21 15:00 08/03/21 10:00 Metoprolol Tartrate 25 Mg Tab PO 12.5 mg BID MÓNICA Administration Ondansetron HCl 4 mg 07/31/21 10:00 Ondansetron 4 Mg/2 Ml Inj IV Q8H PRN Nausea And Vomiting Sodium Chloride 10 ml 07/31/21 10:00 08/03/21 10:01 Sodium Chloride 0.9% 10 Ml Flush Syringe IV 10 ml BID MÓNICA Administration Sodium Chloride 10 ml 07/31/21 10:00 08/02/21 06:14 Sodium Chloride 0.9% 10 Ml Flush Syringe IV 10 ml PRN PRN Administration LINE FLUSH Sucralfate 1 gm 08/01/21 16:30 08/03/21 13:13 Sucralfate 1 Gm Tab PO 1 gm ACHS MÓNICA Administration
[2021-08-04] MEDS: medroxyPROGESTERone ACETATE 5 MG TAB PO SCH ×2 (06:10→09:27)
[2021-08-04] MEDS: SUCRALFATE 1 GM TAB PO SCH ×2 (08:42→12:06)
--- NOTE | 2021-08-04 08:58 | Progress Note ---
Assessment and Plan Assessment and plan: Hospital Course: 08/02: D/w cardiology who are ok with discontinuation of amiodorone. Patient will likely get OP procedure for hysterectomy. In the interim, platelet count remains low. D/w Hematology who believes patient likely has ITP. Recommends continuation of solumedrol until platelet count improves over 50K consistently. Anticipate discharge on Thursday. Will order cbc for tomorrow. 08/03: Plt improved to 100K. Will order follow up cbc for tomorrow. Once cleared by hematology, will discharge patient home with instructions to follow up outpatient with hematology. Assessment and Plan # Ventricular Tachycardia (resolved) - intermittent bursts on tele - suspect this is due to severe anemia - continuous tele monitoring - ECHO: ef 55-60%, mild dilation. please refer to official report -continue metoprolol 12.5 mg po bid - cardiology consultation, recommends amiodorone bolus + drip - no further episodes seen on 08/01 encounter in afternoon, suspect VT was driven by severe anemia, will follow final cardiology recs. # Menorrhagia (improving) - day 3 of 7 in menstrual cycle, prior cycle normal second episode, prior admission at [facility] x 2 yrs - VSS, hgb 2.9 - hcg qual negative - Pelvic US: enlarged uterus with hyperchoic lesions, fibroids visualized (please refer to radiology report) - 3 units prbc ordered, f/u cbc ordered - Estrogen 25 mg IV q6hr - Can consider TXA if bleeding is refractory to therapy. 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 - hematology consultation for anemia/thrombocytopenia # Symptomatic Anemia - 2/2 heavy vaginal bleeding during mentrual cycle, has history of anemia and takes iron supplements. - hgb : 2.9 - s/p 3 units prbc, f/u cbc ordered - monitor H/H, transfuse prn Hgb < 7 - fibrinogen 175 -> 309 - resume home iron supplementation - ferlicitIV - hematology consultation #ITP - lisbet test pending - plt: 21k--> 66K -- > 49K - transfuse prn < 20k - continue solumedrol 1mg/kg IV bid until plt ct > 50K consistently - hematology consultation, recommendations noted. # Nicotine Abuse. - Cigarettes 1 pack per week - behavioral health counseling administered which included education on benefits of smoking cessation as well as options for quitting. +15 min. #Advance care planning Disease education conducted, care plan discussed, diagnoses discussed, prognosis discussed, patient is full code, patient acknowledges understanding and agree with care plan, +30 minutes. Level of Care: IMCU The high probability of a clinically significant, sudden or life threatening deterioration of the [cardiac,mainframe architect,heme] system(s) required my full and direct attention, intervention and personal management. The aggregate critical care time was [60] minutes. This time is in addition to time spent performing reported procedures but includes the following: [x] Data Review and interpretation [x] Patient assessment and monitoring of vital signs [x] Documentation [x] Medication orders and management Hospitalist Physical - Physical exam Narrative exam: Physical Exam: VITAL SIGNS: Reviewed. GENERAL: The patient appears normally developed, Vital signs as documented. pleasant, NAD. HEAD: No signs of head trauma. EYES: Pupils are equal. Extraocular motions intact. Pale icterus EARS: Hearing grossly intact. MOUTH: Oropharynx is normal. NECK: No adenopathy, no JVD. CHEST: Chest with clear breath sounds bilaterally. No wheezes, rales, or rhonchi. CARDIAC: Regular rate and rhythm. no VT episodes visualized on monitor. pulse rate 54 NSR. S1 and S2, without murmurs, gallops, or rubs. VASCULAR: No Edema. Peripheral pulses normal and equal in all extremities. ABDOMEN: Soft, non tender and non distended. No rebound or guarding, and no masses palpated. Bowel Sounds normal. MUSCULOSKELETAL: Good range of motion of all major joints. Extremities without clubbing, cyanosis or edema. NEUROLOGIC EXAM: Alert and oriented x 4. no focal sensory or strength deficits. PSYCHIATRIC: Mood normal. SKIN: Pale skin, nail beds pale. detail exam as documented in skin assessment - Constitutional Vitals: Temp Pulse Resp BP Pulse Ox 98.0 F 64 19 156/70 97 08/04/21 04:00 08/04/21 06:00 08/04/21 06:00 08/04/21 06:00 08/04/21 06:00 General appearance: Present: no acute distress, well-nourished HEART Score - HEART Score Troponin: Troponin T < 0.010 ng/mL (0.00-0.029) 07/31/21 10:03 Results - Labs CBC & Chem 7: 08/03/21 04:32 08/01/21 06:31 Labs: Laboratory Last Values WBC 26.6 K/mm3 (4.5-11.0) H 08/03/21 04:32 RBC 3.35 M/mm3 (3.65-5.03) L 08/03/21 04:32 Hgb 8.2 gm/dl (10.1-14.3) L 08/03/21 04:32 Hct 26.1 % (30.3-42.9) L 08/03/21 04:32 MCV 78 fl (79-97) L 08/03/21 04:32 MCH 24 pg (28-32) L 08/03/21 04:32 MCHC 31 % (30-34) 08/03/21 04:32 RDW 32.0 % (13.2-15.2) H 08/03/21 04:32 Plt Count 101 K/mm3 (140-440) L D 08/03/21 04:32 Add Manual Diff Complete 08/03/21 04:32 Total Counted 100 08/03/21 04:32 Seg Neutrophils % Railroad Mechanic 08/03/21 04:32 Seg Neuts % (Manual) 96.0 % (40.0-70.0) H 08/03/21 04:32 Band Neutrophils % 0 % 08/03/21 04:32 Lymphocytes % (Manual) 0 % (13.4-35.0) L 08/03/21 04:32 Reactive Lymphs % (Man) 0 % 08/03/21 04:32 Monocytes % (Manual) 4.0 % (0.0-7.3) 08/03/21 04:32 Eosinophils % (Manual) 0 % (0.0-4.3) 08/03/21 04:32 Basophils % (Manual) 0 % (0.0-1.8) 08/03/21 04:32 Metamyelocytes % 0 % 08/03/21 04:32 Myelocytes % 0 % 08/03/21 04:32 Promyelocytes % 0 % 08/03/21 04:32 Blast Cells % 0 % 08/03/21 04:32 Nucleated RBC % 2.0 % (0.0-0.9) H 08/03/21 04:32 Seg Neutrophils # Man 25.5 K/mm3 (1.8-7.7) H 08/03/21 04:32 Band Neutrophils # 0.0 K/mm3 08/03/21 04:32 Lymphocytes # (Manual) 0.0 K/mm3 (1.2-5.4) L 08/03/21 04:32 Abs React Lymphs (Man) 0.0 K/mm3 08/03/21 04:32 Monocytes # (Manual) 1.1 K/mm3 (0.0-0.8) H 08/03/21 04:32 Eosinophils # (Manual) 0.0 K/mm3 (0.0-0.4) 08/03/21 04:32 Basophils # (Manual) 0.0 K/mm3 (0.0-0.1) 08/03/21 04:32 Metamyelocytes # 0.0 K/mm3 08/03/21 04:32 Myelocytes # 0.0 K/mm3 08/03/21 04:32 Promyelocytes # 0.0 K/mm3 08/03/21 04:32 Blast Cells # 0.0 K/mm3 08/03/21 04:32 WBC Morphology Not Reportable 08/03/21 04:32 Hypersegmented Neuts Not Reportable 08/03/21 04:32 Hyposegmented Neuts Not Reportable 08/03/21 04:32 Hypogranular Neuts Not Reportable 08/03/21 04:32 Smudge Cells Not Reportable 08/03/21 04:32 Toxic Granulation Not Reportable 08/03/21 04:32 Toxic Vacuolation Not Reportable 08/03/21 04:32 Dohle Bodies Not Reportable 08/03/21 04:32 Pelger-Huet Anomaly Not Reportable 08/03/21 04:32 Mathieu Rods Not Reportable 08/03/21 04:32 Platelet Estimate Consistent w auto 08/03/21 04:32 Clumped Platelets Not Reportable 08/03/21 04:32 Plt Clumps, EDTA Not Reportable 08/03/21 04:32 Large Platelets Not Reportable 08/03/21 04:32 Giant Platelets Not Reportable 08/03/21 04:32 Platelet Satelliting Not Reportable 08/03/21 04:32 Plt Morphology Comment Not Reportable 08/03/21 04:32 RBC Morphology Not Reportable 08/03/21 04:32 Dimorphic RBCs Not Reportable 08/03/21 04:32 Polychromasia Not Reportable 08/03/21 04:32 Hypochromasia 2+ 08/03/21 04:32 Poikilocytosis Not Reportable 08/03/21 04:32 Anisocytosis 3+ 08/03/21 04:32 Microcytosis Not Reportable 08/03/21 04:32 Macrocytosis 1+ 08/03/21 04:32 Spherocytes Not Reportable 08/03/21 04:32 Pappenheimer Bodies Not Reportable 08/03/21 04:32 Sickle Cells Not Reportable 08/03/21 04:32 Target Cells Not Reportable 08/03/21 04:32 Tear Drop Cells Few 08/03/21 04:32 Ovalocytes 1+ 08/03/21 04:32 Helmet Cells Not Reportable 08/03/21 04:32 [place] Bodies Not Reportable 08/03/21 04:32 [place] Rings Not Reportable 08/03/21 04:32 [place] Cells Not Reportable 08/03/21 04:32 Bite Cells Not Reportable 08/03/21 04:32 Crenated Cell Not Reportable 08/03/21 04:32 Elliptocytes Not Reportable 08/03/21 04:32 Acanthocytes (Spur) Not Reportable 08/03/21 04:32 Rouleaux Not Reportable 08/03/21 04:32 Hemoglobin C Crystals Not Reportable 08/03/21 04:32 Schistocytes Not Reportable 08/03/21 04:32 Malaria parasites Not Reportable 08/03/21 04:32 Hector Bodies Not Reportable 08/03/21 04:32 Hem Pathologist Commnt No 08/03/21 04:32 PT 15.5 Sec. (12.2-14.9) H 07/31/21 22:42 INR 1.10 (0.87-1.13) 07/31/21 22:42 APTT 23.9 Sec. (24.2-36.6) L 07/31/21 22:42 Fibrinogen 309 mg/dl (211-480) 08/02/21 04:22 D-Dimer 594.69 ng/mlDDU (0-234) H 08/02/21 04:22 Sodium 139 mmol/L (137-145) 08/01/21 06:31 Potassium 3.6 mmol/L (3.6-5.0) 08/01/21 06:31 Chloride 110.0 mmol/L (98-107) H 08/01/21 06:31 Carbon Dioxide 20 mmol/L (22-30) L 08/01/21 06:31 Anion Gap 13 mmol/L 08/01/21 06:31 BUN 3 mg/dL (7-17) L 08/01/21 06:31 Creatinine 0.5 mg/dL (0.6-1.2) L 08/01/21 06:31 Estimated GFR > 60 ml/min 08/01/21 06:31 BUN/Creatinine Ratio 6 % 08/01/21 06:31 Glucose 98 mg/dL (65-100) 08/01/21 06:31 Calcium 8.3 mg/dL (8.4-10.2) L 08/01/21 06:31 Phosphorus 3.40 mg/dL (2.5-4.5) 07/31/21 10:03 Magnesium 1.90 mg/dL (1.7-2.3) 08/01/21 06:31 Total Bilirubin < 0.20 mg/dL (0.1-1.2) 07/31/21 06:40 AST 12 units/L (5-40) 07/31/21 06:40 ALT 6 units/L (7-56) L 07/31/21 06:40 Alkaline Phosphatase 48 units/L (35-129) 07/31/21 06:40 Lactate Dehydrogenase 227 units/L (91-180) H 08/02/21 04:22 Troponin T < 0.010 ng/mL (0.00-0.029) 07/31/21 10:03 Total Protein 5.4 g/dL (6.3-8.2) L 07/31/21 06:40 Albumin 3.3 g/dL (3.9-5) L 07/31/21 06:40 Albumin/Globulin Ratio 1.6 % 07/31/21 06:40 HCG, Qual Negative (Negative) 07/31/21 06:40 Blood Type B POSITIVE 07/31/21 06:44 Antibody Screen Negative 07/31/21 06:44 Direct Antiglob Test Negative 08/02/21 04:22 JULIET, Poly Interpret Negative 08/02/21 04:22 Crossmatch See Detail 07/31/21 06:44 Olson/IV: Voiding Method Toilet Active Medications - Current Medications Current Medications: Generic Name Dose Route Start Last Admin Trade Name Amadorq PRN Reason Stop Dose Admin Acetaminophen 650 mg 07/31/21 10:00 08/03/21 19:54 Acetaminophen 325 Mg Tab PO 650 mg Q4H PRN Administration Pain MILD(1-3)/Fever >100.5/DURBIN Lidocaine 1 each 08/02/21 14:00 08/03/21 13:25 Lidocaine 5% 1 Each Patch TD 1 each QDAY MÓNICA Administration Medroxyprogesterone Acetate 10 mg 08/01/21 17:00 08/04/21 06:10 Medroxyprogesterone Acetate 5 Mg Tab PO Not Given QDAY MÓNICA Methylprednisolone Sodium Succinate 100 mg 08/02/21 11:00 08/03/21 22:08 Methylprednisolone Sod Succinate 125 Mg/2 Ml Inj IV 08/04/21 10:59 100 mg Q12H MÓNICA Administration Metoprolol Tartrate 12.5 mg 07/31/21 15:00 08/03/21 22:09 Metoprolol Tartrate 25 Mg Tab PO Not Given BID MÓNICA Ondansetron HCl 4 mg 07/31/21 10:00 Ondansetron 4 Mg/2 Ml Inj IV Q8H PRN Nausea And Vomiting Sodium Chloride 10 ml 07/31/21 10:00 08/03/21 22:10 Sodium Chloride 0.9% 10 Ml Flush Syringe IV 10 ml BID MÓNICA Administration Sodium Chloride 10 ml 07/31/21 10:00 08/02/21 06:14 Sodium Chloride 0.9% 10 Ml Flush Syringe IV 10 ml PRN PRN Administration LINE FLUSH Sucralfate 1 gm 08/01/21 16:30 08/04/21 08:42 Sucralfate 1 Gm Tab PO 1 gm ACHS MÓNICA Administration
[2021-08-04 09:04] LABS: Hemoglobin 7.5 gm/dl (10.1-14.3); Mean Corpuscular HGB Conc 31 % (30-34); Mean Corpuscular Volume 78 fl (79-97); Red Blood Count 3.08 M/mm3 (3.65-5.03)
[2021-08-04] MEDS: METOPROLOL TARTRATE 25 MG TAB PO SCH (09:26)
[2021-08-04] MEDS: LIDOCAINE 5% 1 EACH PATCH TD SCH (09:27)
[2021-08-04 09:56] LABS: Platelet Count 209 K/mm3 (140-440); Red Cell Distribution Width 32.3 % (13.2-15.2)
[2021-08-04] MEDS ORDERED: amLODIPine 10 MG TAB PO SCH (10:00)
[2021-08-04 10:01] LABS: Basophils # (Auto) 0.1 K/mm3 (0.0-0.1); Eosinophils % (Auto) 0.2 % (0.0-4.3); Monocytes # (Auto) 0.7 K/mm3 (0.0-0.8)
--- NOTE | 2021-08-04 12:08 | Hem/Onc Progress Note ---
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 recent severe anemia-->s/p RBC transfusion planning discharge today HCT 24 Plt 209 today 08/04/21 DATA REVIEWED BELOW Hgb 2.9 --> 7.5 Plts 21 -> 66--> 49 Fib 309 lisbet neg IMP: recent low plt count is acute/chronic ITP-->benefitted from steroid pulse recent severe anemia due to bleeding, iron defic, maybe "DIC" s/p RBC and iron infusions doubt heme malignancy Plan: OK to discharge pt from heme perspective prednisone taper over 10 days, starting with prednisone 40mg daily we will try for outpt televisit heme f/u after discharge rec SYSTEMS DESIGN ENGINEER follow-up outpatient, consider hysterectomy d/w Dr. Jamar Aguilar Active Medications Acetaminophen (Acetaminophen 325 Mg Tab) 650 mg PO Q4H PRN PRN Reason: Pain MILD(1-3)/Fever >100.5/DURBIN Last Admin: 08/03/21 19:54 Dose: 650 mg Amlodipine Besylate (Amlodipine 10 Mg Tab) 10 mg PO QDAY [facility] Last Admin: 08/04/21 12:06 Dose: 10 mg Lidocaine (Lidocaine 5% 1 Each Patch) 1 each TD QDAY [facility] Last Admin: 08/04/21 09:27 Dose: 1 each Medroxyprogesterone Acetate (Medroxyprogesterone Acetate 5 Mg Tab) 10 mg PO QDAY [facility] Last Admin: 08/04/21 09:27 Dose: 10 mg Metoprolol Tartrate (Metoprolol Tartrate 25 Mg Tab) 12.5 mg PO BID [facility] Last Admin: 08/04/21 09:26 Dose: 12.5 mg Ondansetron HCl (Ondansetron 4 Mg/2 Ml Inj) 4 mg IV Q8H PRN PRN Reason: Nausea And Vomiting Sodium Chloride (Sodium Chloride 0.9% 10 Ml Flush Syringe) 10 ml IV BID [facility] Last Admin: 08/04/21 09:27 Dose: 10 ml Sodium Chloride (Sodium Chloride 0.9% 10 Ml Flush Syringe) 10 ml IV PRN PRN PRN Reason: LINE FLUSH Last Admin: 08/02/21 06:14 Dose: 10 ml Sucralfate (Sucralfate 1 Gm Tab) 1 gm PO ACHS [facility] Last Admin: 08/04/21 12:06 Dose: 1 gm Laboratory Last Values WBC 22.8 K/mm3 (4.5-11.0) H 08/04/21 07:53 RBC 3.08 M/mm3 (3.65-5.03) L 08/04/21 07:53 Hgb 7.5 gm/dl (10.1-14.3) L 08/04/21 07:53 Hct 24.0 % (30.3-42.9) L 08/04/21 07:53 MCV 78 fl (79-97) L 08/04/21 07:53 MCH 25 pg (28-32) L 08/04/21 07:53 MCHC 31 % (30-34) 08/04/21 07:53 RDW 32.3 % (13.2-15.2) H 08/04/21 07:53 Plt Count 209 K/mm3 (140-440) D 08/04/21 07:53 [place] % (Auto) 3.0 % (0.0-7.3) 08/04/21 07:53 Eos % (Auto) 0.2 % (0.0-4.3) 08/04/21 07:53 [place] # (Auto) 0.7 K/mm3 (0.0-0.8) 08/04/21 07:53 Eos # (Auto) 0.0 K/mm3 (0.0-0.4) 08/04/21 07:53 Baso # (Auto) 0.1 K/mm3 (0.0-0.1) 08/04/21 07:53 Add Manual Diff Complete 08/03/21 04:32 Total Counted 100 08/03/21 04:32 Seg Neutrophils % Centrifuge Separator Tender 08/04/21 07:53 Seg Neuts % (Manual) 96.0 % (40.0-70.0) H 08/03/21 04:32 Band Neutrophils % 0 % 08/03/21 04:32 Lymphocytes % (Manual) 0 % (13.4-35.0) L 08/03/21 04:32 Reactive Lymphs % (Man) 0 % 08/03/21 04:32 Monocytes % (Manual) 4.0 % (0.0-7.3) 08/03/21 04:32 Eosinophils % (Manual) 0 % (0.0-4.3) 08/03/21 04:32 Basophils % (Manual) 0 % (0.0-1.8) 08/03/21 04:32 Metamyelocytes % 0 % 08/03/21 04:32 Myelocytes % 0 % 08/03/21 04:32 Promyelocytes % 0 % 08/03/21 04:32 Blast Cells % 0 % 08/03/21 04:32 Nucleated RBC % 2.0 % (0.0-0.9) H 08/03/21 04:32 Seg Neutrophils # 21.2 K/mm3 (1.8-7.7) H 08/04/21 07:53 Seg Neutrophils # Man 25.5 K/mm3 (1.8-7.7) H 08/03/21 04:32 Band Neutrophils # 0.0 K/mm3 08/03/21 04:32 Lymphocytes # (Manual) 0.0 K/mm3 (1.2-5.4) L 08/03/21 04:32 Abs React Lymphs (Man) 0.0 K/mm3 08/03/21 04:32 Monocytes # (Manual) 1.1 K/mm3 (0.0-0.8) H 08/03/21 04:32 Eosinophils # (Manual) 0.0 K/mm3 (0.0-0.4) 08/03/21 04:32 Basophils # (Manual) 0.0 K/mm3 (0.0-0.1) 08/03/21 04:32 Metamyelocytes # 0.0 K/mm3 08/03/21 04:32 Myelocytes # 0.0 K/mm3 08/03/21 04:32 Promyelocytes # 0.0 K/mm3 08/03/21 04:32 Blast Cells # 0.0 K/mm3 08/03/21 04:32 WBC Morphology Not Reportable 08/03/21 04:32 Hypersegmented Neuts Not Reportable 08/03/21 04:32 Hyposegmented Neuts Not Reportable 08/03/21 04:32 Hypogranular Neuts Not Reportable 08/03/21 04:32 Smudge Cells Not Reportable 08/03/21 04:32 Toxic Granulation Not Reportable 08/03/21 04:32 Toxic Vacuolation Not Reportable 08/03/21 04:32 Dohle Bodies Not Reportable 08/03/21 04:32 Pelger-Huet Anomaly Not Reportable 08/03/21 04:32 Mathieu Rods Not Reportable 08/03/21 04:32 Platelet Estimate Consistent w auto 08/03/21 04:32 Clumped Platelets Not Reportable 08/03/21 04:32 Plt Clumps, EDTA Not Reportable 08/03/21 04:32 Large Platelets Not Reportable 08/03/21 04:32 Giant Platelets Not Reportable 08/03/21 04:32 Platelet Satelliting Not Reportable 08/03/21 04:32 Plt Morphology Comment Not Reportable 08/03/21 04:32 RBC Morphology Not Reportable 08/03/21 04:32 Dimorphic RBCs Not Reportable 08/03/21 04:32 Polychromasia Not Reportable 08/03/21 04:32 Hypochromasia 2+ 08/03/21 04:32 Poikilocytosis Not Reportable 08/03/21 04:32 Anisocytosis 3+ 08/03/21 04:32 Microcytosis Not Reportable 08/03/21 04:32 Macrocytosis 1+ 08/03/21 04:32 Spherocytes Not Reportable 08/03/21 04:32 Pappenheimer Bodies Not Reportable 08/03/21 04:32 Sickle Cells Not Reportable 08/03/21 04:32 Target Cells Not Reportable 08/03/21 04:32 Tear Drop Cells Few 08/03/21 04:32 Ovalocytes 1+ 08/03/21 04:32 Helmet Cells Not Reportable 08/03/21 04:32 [place] Bodies Not Reportable 08/03/21 04:32 [place] Rings Not Reportable 08/03/21 04:32 Bishnu Cells Not Reportable 08/03/21 04:32 Bite Cells Not Reportable 08/03/21 04:32 Crenated Cell Not Reportable 08/03/21 04:32 Elliptocytes Not Reportable 08/03/21 04:32 Acanthocytes (Spur) Not Reportable 08/03/21 04:32 Rouleaux Not Reportable 08/03/21 04:32 Hemoglobin C Crystals Not Reportable 08/03/21 04:32 Schistocytes Not Reportable 08/03/21 04:32 Malaria parasites Not Reportable 08/03/21 04:32 Hector Bodies Not Reportable 08/03/21 04:32 Hem Pathologist Commnt No 08/03/21 04:32 PT 15.5 Sec. (12.2-14.9) H 07/31/21 22:42 INR 1.10 (0.87-1.13) 07/31/21 22:42 APTT 23.9 Sec. (24.2-36.6) L 07/31/21 22:42 Fibrinogen 309 mg/dl (211-480) 08/02/21 04:22 D-Dimer 594.69 ng/mlDDU (0-234) H 08/02/21 04:22 Sodium 139 mmol/L (137-145) 08/01/21 06:31 Potassium 3.6 mmol/L (3.6-5.0) 08/01/21 06:31 Chloride 110.0 mmol/L (98-107) H 08/01/21 06:31 Carbon Dioxide 20 mmol/L (22-30) L 08/01/21 06:31 Anion Gap 13 mmol/L 08/01/21 06:31 BUN 3 mg/dL (7-17) L 08/01/21 06:31 Creatinine 0.5 mg/dL (0.6-1.2) L 08/01/21 06:31 Estimated GFR > 60 ml/min 08/01/21 06:31 BUN/Creatinine Ratio 6 % 08/01/21 06:31 Glucose 98 mg/dL (65-100) 08/01/21 06:31 Calcium 8.3 mg/dL (8.4-10.2) L 08/01/21 06:31 Phosphorus 3.40 mg/dL (2.5-4.5) 07/31/21 10:03 Magnesium 1.90 mg/dL (1.7-2.3) 08/01/21 06:31 Total Bilirubin < 0.20 mg/dL (0.1-1.2) 07/31/21 06:40 AST 12 units/L (5-40) 07/31/21 06:40 ALT 6 units/L (7-56) L 07/31/21 06:40 Alkaline Phosphatase 48 units/L (35-129) 07/31/21 06:40 Lactate Dehydrogenase 227 units/L (91-180) H 08/02/21 04:22 Troponin T < 0.010 ng/mL (0.00-0.029) 07/31/21 10:03 Total Protein 5.4 g/dL (6.3-8.2) L 07/31/21 06:40 Albumin 3.3 g/dL (3.9-5) L 07/31/21 06:40 Albumin/Globulin Ratio 1.6 % 07/31/21 06:40 HCG, Qual Negative (Negative) 07/31/21 06:40 Blood Type B POSITIVE 07/31/21 06:44 Antibody Screen Negative 07/31/21 06:44 Direct Antiglob Test Negative 08/02/21 04:22 JULIET, Poly Interpret Negative 08/02/21 04:22 Crossmatch See Detail 07/31/21 06:44 Objective - Constitutional Vitals: Last Vital Signs Temp 98.4 F 08/04/21 12:00 Pulse 67 08/04/21 10:00 Resp 22 08/04/21 10:00 BP 149/80 08/04/21 10:00 Pulse Ox 100 08/04/21 10:00 - Labs Lab Results: Laboratory Results - last 24 hr 08/04/21 07:53 WBC 22.8 H RBC 3.08 L Hgb 7.5 L Hct 24.0 L MCV 78 L MCH 25 L MCHC 31 RDW 32.3 H Plt Count 209 D [place] % (Auto) 3.0 Eos % (Auto) 0.2 [place] # (Auto) 0.7 Eos # (Auto) 0.0 Baso # (Auto) 0.1 Seg Neutrophils % Centrifuge Separator Tender Seg Neutrophils # 21.2 H Medications & Allergies - Medications Allergies/Adverse Reactions: Allergies No Known Allergies Allergy (Unverified 07/30/21 23:08) Home Medications: Home Medications Medication Instructions Recorded Confirmed Last Taken Type Ferrous Sulfate [Ferrous Sulfate 324 mg PO QDAY 08/03/21 08/03/21 07/30/21 History 324 MG] Folic Acid 0.4 mg PO QDAY 08/03/21 08/03/21 07/30/21 History Magnesium 250 mg PO QDAY 08/03/21 08/03/21 07/30/21 History Multivitamin [One-Daily 1 each PO QDAY 08/03/21 08/03/21 07/30/21 History Multi-Vitamin] Active Medications: Generic Name Dose Route Start Last Admin Trade Name Amadorq PRN Reason Stop Dose Admin Acetaminophen 650 mg 07/31/21 10:00 08/03/21 19:54 Acetaminophen 325 Mg Tab PO 650 mg Q4H PRN Administration Pain MILD(1-3)/Fever >100.5/DURBIN Amlodipine Besylate 10 mg 08/04/21 10:00 Amlodipine 10 Mg Tab PO QDAY MÓNICA Lidocaine 1 each 08/02/21 14:00 08/04/21 09:27 Lidocaine 5% 1 Each Patch TD 1 each QDAY MÓNICA Administration Medroxyprogesterone Acetate 10 mg 08/01/21 17:00 08/04/21 09:27 Medroxyprogesterone Acetate 5 Mg Tab PO 10 mg QDAY MÓNICA Administration Metoprolol Tartrate 12.5 mg 07/31/21 15:00 08/04/21 09:26 Metoprolol Tartrate 25 Mg Tab PO 12.5 mg BID MÓNICA Administration Ondansetron HCl 4 mg 07/31/21 10:00 Ondansetron 4 Mg/2 Ml Inj IV Q8H PRN Nausea And Vomiting Sodium Chloride 10 ml 07/31/21 10:00 08/04/21 09:27 Sodium Chloride 0.9% 10 Ml Flush Syringe IV 10 ml BID MÓNICA Administration Sodium Chloride 10 ml 07/31/21 10:00 08/02/21 06:14 Sodium Chloride 0.9% 10 Ml Flush Syringe IV 10 ml PRN PRN Administration LINE FLUSH Sucralfate 1 gm 08/01/21 16:30 08/04/21 08:42 Sucralfate 1 Gm Tab PO 1 gm ACHS MÓNICA Administration
--- NOTE | 2021-08-04 12:47 | Discharge Summary ---
Providers - Providers Date of Admission: 07/31/21 09:41 Attending physician: JAUN ESPINOZA MD 07/31/21 07:41 Consult to Physician [CONS] Stat Comment: Consulting Provider: ANA LAURA ROBLES Physician Instructions: Reason For Exam: Severe vag bleeding/ severe anemia (symptomatic) 07/31/21 14:08 Consult to Physician [CONS] Routine Comment: Consulting Provider: NGUYEN DAVID Physician Instructions: Reason For Exam: ventricular tachycardia 08/01/21 07:00 Consult to Physician [CONS] Routine Comment: Consulting Provider: LAURA SANZ Physician Instructions: Reason For Exam: menorrhagia, severe anemia Primary care physician: RACEBOOK WRITER Hospitalization Reason for admission: vaginal bleeding Condition: Stable Hospital course: HPI 46 yo female with mphx of uterine fibroids, ANDERSON presenting to our facility with c/o of severe menorrhagia. Per patient, onset of symptoms was approximately 3 days ago. Patient has been saturating 6 overnight pads per hour since last night. She is currently on day 3 in her menstrual cycle. Her LMP was early last month and was normal per the pt. She endorses symptoms of abdomen cramping, SOB with exertion, generalized weakness, dizziness, and palpitations. On my encounter, she was resting comfortably only endorsing fatigue. Her tele monitor demonstrated sporadic bursts of VT, approx 15 - 20 sec. D/w ER attending regarding this. She denies DURBIN, N/V/D/C, chest pain, peripheral nerve pain. She denies dysmenorrhagia or dyspareunia associated with cycle. Remainder of ROS negative except for stated above Of note, patient states that she had a similar episode of vaginal bleeding apporximately 2 yrs ago at [facility] requiring admission and blood transfusion. She recovered uneventfully at the time and had been symptom free up until the last few days. Patient does admit to taking iron supplementation for anemia. She does not follow with RESIDENTIAL MORTGAGE MANAGER care OP. She denied taking OCP. She states that she had 3 prior pregnancies, 2 uncomplicated vaginal deliveries, one which ended in SAB. She denies any history of bleeding or clotting disorders. Patient will be admitted to IMCU for close monitoring of sympomatic anemia secondary to severe menorrhagia and intermittent runs of ventricular tachycardia. PMHx: uterine fibroids, ANDERSON, , SAB PSHx: denies FHx: reviewed non contributory SHx: Tobacco use- 1 pack per week ETOH Use- occasional Recreational Drug Use- denies Hospital Course: 08/02: D/w cardiology who are ok with discontinuation of amiodorone. Patient will likely get OP procedure for hysterectomy. In the interim, platelet count remains low. D/w Hematology who believes patient likely has ITP. Recommends continuation of solumedrol until platelet count improves over 50K consistently. Anticipate discharge on Thursday. Will order cbc for tomorrow. 08/03: Plt improved to 100K. Will order follow up cbc for tomorrow. Once cleared by hematology, will discharge patient home with instructions to follow up outpatient with hematology. 08/04: Platelets improved to 200K today. D/w hematology. Ok with discharge, rx 10 day prednisone taper. Dc provera. Will discharge the patient with instructions to follow up with Hematology and VETERINARY RADIOLOGIST as outpatient. Patient was instructed she will need to discuss scheduling her hysterectomy with VETERINARY RADIOLOGIST. BP has been elevated this admission. Patient would benefit from initiation of amlodipine 10 mg po daily. She is instructed to follow up with her primary care doctor in 1-2 weeks to discuss this recent admission. Assessment and Plan # Ventricular Tachycardia (resolved) - intermittent bursts on tele - suspect this is due to severe anemia - continuous tele monitoring - ECHO: ef 55-60%, mild dilation. please refer to official report -continue metoprolol 12.5 mg po bid - cardiology consultation, recommends amiodorone bolus + drip - no further episodes seen on 08/01 encounter in afternoon, suspect VT was driven by severe anemia, will follow final cardiology recs. # Menorrhagia (improving) - day 3 of 7 in menstrual cycle, prior cycle normal second episode, prior admission at [facility] x 2 yrs - VSS, hgb 2.9 - hcg qual negative - Pelvic US: enlarged uterus with hyperchoic lesions, fibroids visualized (please refer to radiology report) - 3 units prbc ordered, f/u cbc ordered - Estrogen 25 mg IV q6hr - Can consider TXA if bleeding is refractory to therapy. - RESIDENTIAL MORTGAGE MANAGER, planning for outpatient hysterectomy. - hematology consultation for anemia/thrombocytopenia # Symptomatic Anemia - 2/2 heavy vaginal bleeding during mentrual cycle, has history of anemia and takes iron supplements. - hgb : 2.9 - s/p 3 units prbc, f/u cbc ordered - monitor H/H, transfuse prn Hgb < 7 - fibrinogen 175 -> 309 - resume home iron supplementation - ferlicitIV - hematology consultation #ITP - lisbet test pending - plt: 21k--> 66K -- > 49K --> 100K> 200K - transfuse prn < 20k - continue solumedrol 1mg/kg IV bid until plt ct > 50K consistently - hematology consultation, recommendations noted. # Nicotine Abuse. - Cigarettes 1 pack per week - behavioral health counseling administered which included education on benefits of smoking cessation as well as options for quitting. +15 min. #Advance care planning Disease education conducted, care plan discussed, diagnoses discussed, prognosis discussed, patient is full code, patient acknowledges understanding and agree with care plan, +30 minutes. Disposition: HOME / SELF CARE / HOMELESS Final Discharge Diagnosis (Prints w/discharge instructions): menorrhagia, ventricular tachycardia, severe blood loss anemia, immune thrombocytopenia Time spent for discharge: 35 Core Measure Documentation - Palliative Care Palliative Care/ Comfort Measures: Not Applicable - Core Measures Any of the following diagnoses?: none Exam - Physical Exam Narrative exam: Physical Exam: VITAL SIGNS: Reviewed. GENERAL: The patient appears normally developed, Vital signs as documented. pleasant, NAD. HEAD: No signs of head trauma. EYES: Pupils are equal. Extraocular motions intact. Pale icterus EARS: Hearing grossly intact. MOUTH: Oropharynx is normal. NECK: No adenopathy, no JVD. CHEST: Chest with clear breath sounds bilaterally. No wheezes, rales, or rhonchi. CARDIAC: Regular rate and rhythm. no VT episodes visualized on monitor. pulse rate 54 NSR. S1 and S2, without murmurs, gallops, or rubs. VASCULAR: No Edema. Peripheral pulses normal and equal in all extremities. ABDOMEN: Soft, non tender and non distended. No rebound or guarding, and no masses palpated. Bowel Sounds normal. MUSCULOSKELETAL: Good range of motion of all major joints. Extremities without clubbing, cyanosis or edema. NEUROLOGIC EXAM: Alert and oriented x 4. no focal sensory or strength deficits. PSYCHIATRIC: Mood normal. SKIN: Pale skin, nail beds pale. detail exam as documented in skin assessment - Constitutional Vitals: Temp Pulse Resp BP Pulse Ox 98.4 F 70 22 154/79 100 08/04/21 12:00 08/04/21 12:06 08/04/21 12:00 08/04/21 12:06 08/04/21 12:00 Plan Activity: no restrictions Plan of Treatment: Ms Claude Cruz. Admitted for menorrhagia due to suspected immune thrombocytopenia. You were transfused blood due to severe anemia. During his hospital admission you were found to have several episodes of ventricular ta chycardia. This resolved once you were administered blood and you were started on an antiarrhythmic, amiodarone. We had a ophthalmic medical technologist come evaluate you. Your echocardiogram was read as normal. You were discontinued off of amiodarone. You had no further episodes of ventricular tachycardia. Your platelets this admission fell to a critical level. A commercial designer evaluated you and diagnosed you with immune thrombocytopenia. You were initiated on IV steroids and your platelet count improved. You will be discharged home with a prescription for prednisone taper and amlodipine. You are advised to follow-up with a commercial designer as an outpatient. We also recommend you follow-up with gynecology to discuss scheduling a hysterectomy. You were advised to follow-up with your primary care doctor in 1 to 2 weeks. Follow up with: PRIMARY CARE, [Primary Care Provider] - 3-5 Days Prescriptions: Prednisone [predniSONE 5 mg (6-Day Pack, 21 Tabs)] 5 mg PO .TAPER 10 Days #51 tab
[2021-08-04 14:17] LABS: Basophils % (Manual) 0 % (0.0-1.8); Eosinophils % (Manual) 0 % (0.0-4.3); Ovalocytes 1+; Tear Drop Cells Few; Total Cells Counted 100
[2021-08-04 14:18] LABS: Giant Platelets Few; Platelet Estimate Consistent w Auto
[2021-08-04 14:26] VITALS: BP 164/89
[2021-08-05] MEDS ORDERED: predniSONE 20 MG TAB PO SCH (10:00)
== END 2021-08-04 14:29 | disposition home or self-care (01) | DRG 760 ==
LOC: ED 23:01 → 3A 07-31 09:41 → IMCU 07-31 14:13
PROVIDERS: ADMIT Internal Medicine; ATTEND Internal Medicine
PROC: 30233N1 Transfusion of Nonautologous Red Blood Cells into Peripheral Vein, Percutaneous Approach (ICD-10-PCS; principal; 2021-07-31)
DX: N93.9 Abnormal uterine and vaginal bleeding, unspecified (principal); D62 Acute posthemorrhagic anemia; I47.2 Ventricular tachycardia; D69.3 Immune thrombocytopenic purpura; N92.0 Excessive and frequent menstruation with regular cycle; F17.200 Nicotine dependence, unspecified, uncomplicated; Z80.3 Family history of malignant neoplasm of breast; Z82.49 Family history of ischemic heart disease and other diseases of the circulatory system; Z82.3 Family history of stroke
CPT/HCPCS: 36415; 76856; 80048; 80053; 83615; 83735; 84100; 84484; 84703; 85007; 85025; 85379; 85384; 85610; 85730; 86850; 86880; 86900; 86901; 86920; 93005; 93306; 99406; G0378; J7060; Q0162; C8929; J0282; J1200; J1410; J2916; J2930; J3475; J7030; J7040; P9016